=== PATIENT | female | born 1950 | race American Indian/Alaskan Native ===

== ENCOUNTER 2017-01-09 19:38 | Inpatient (IN) | payer MEDICARE, OTHER ==
[2017-01-09 19:50] VITALS: BMI 27.6
[2017-01-09] MEDS ORDERED: Sodium Chloride 0.9% 1,000 ML IV STA (19:58)
--- NOTE | 2017-01-09 20:06 | ED PDOC ---
Arrival/HPI - General Chief Complaint: Abdominal Pain Time Seen by Provider: 01/09/17 19:46 Historian: Patient - History of Present Illness Narrative History of Present Illness (Text): 01/09/17 20:03 A 66 year old female, whose past medical history includes hypertension, colon cancer, and metastasis to the liver, presents to the emergency department for abdominal pain, which began 7 days ago. The patient reports the pain as diffuse cramping pain along with nausea and vomiting. She states she has had decreased bowel movements and is unable to pass gas. The patient notes her last chemo was 3 weeks ago. The patient denies any fever, chest pain, hematuria, or any other complaints at this time. Time/Duration: 1 week Symptom Onset: Sudden Symptom Course: Unchanged Activities at Onset: Light Context: Home Past Medical History - Provider Review Nursing Documentation Reviewed: Yes - Infectious Disease Hx of Infectious Diseases: None - Reproductive Menopause: Yes - Cardiac Hx Hypertension: Yes - Neurological Hx Paralysis: No - Hematological/Oncological Hx Blood Transfusions: No Hx Blood Transfusion Reaction: No - Musculoskeletal/Rheumatological Hx Musculoskeletal Disorders: Yes - Gastrointestinal Other/Comment: colon cancer - Genitourinary/Gynecological Other/Comment: colon cancer on chemo - Psychiatric Hx Substance Use: No - Anesthesia Hx Anesthesia Reactions: No Hx Malignant Hyperthermia: No - Suicidal Assessment Feels Threatened In Home Enviroment: No Family/Social History - Physician Review Nursing Documentation Reviewed: Yes Family/Social History: No Known Family HX Smoking Status: Former Smoker Hx Alcohol Use: Yes (SOCIAL USE ONLY-WINE) Frequency of alcohol use: Socially Hx Substance Use: No Allergies/Home Meds Allergies/Adverse Reactions: Allergies No Known Allergies Allergy (Verified 02/15/13 07:19) Home Medications: Home Meds Medication Instructions Recorded Confirmed Capecitabine 1,000 mg PO BID 01/09/17 01/09/17 Oxycodone HCl/Acetaminophen 1 tab PO Q4 PRN 01/09/17 01/09/17 [Oxycodone-Acetaminophen 5-325] Tramadol HCl [Ultram] 50 mg PO Q8 PRN 01/09/17 01/09/17 amLODIPine [Norvasc] 10 mg PO DAILY 01/09/17 01/09/17 Review of Systems - Physician Review All systems were reviewed & negative as marked: Yes - Review of Systems Constitutional: absent: Fevers Cardiovascular: absent: Chest Pain Gastrointestinal: Abdominal Pain, Stool Changes (decreased bowel movements ), Nausea, Vomiting, Other (unable to pass gas ) Genitourinary Female: absent: Hematuria Physical Exam Vital Signs Reviewed: Yes Vital Signs Temp Pulse Resp BP Pulse Ox 01/09/17 23:23 97.7 F 91 H 16 143/86 96 01/09/17 19:39 98.4 F 96 H 16 142/86 97 Temperature: Afebrile Blood Pressure: Normal Pulse: Tachycardic Respiratory Rate: Normal Appearance: Positive for: Well-Appearing, Non-Toxic, Comfortable Pain Distress: None Mental Status: Positive for: Alert and Oriented X 3 - Systems Exam Head: Present: Atraumatic, Normocephalic Pupils: Present: PERRL Extroacular Muscles: Present: EOMI Conjunctiva: Present: Normal Mouth: Present: Moist Mucous Membranes Neck: Present: Normal Range of Motion Respiratory/Chest: Present: Clear to Auscultation, Good Air Exchange. No: Respiratory Distress, Accessory Muscle Use Cardiovascular: Present: Regular Rate and Rhythm, Normal S1, S2. No: Murmurs Abdomen: Present: Tenderness (mild focal abdominal tenderness ), Normal Bowel Sounds. No: Distention, Peritoneal Signs Back: Present: Normal Inspection Upper Extremity: Present: Normal Inspection. No: Cyanosis, Edema Lower Extremity: Present: Normal Inspection. No: Edema Neurological: Present: GCS=15, CN II-XII Intact, Speech Normal Skin: Present: Warm, Dry, Normal Color. No: Rashes Psychiatric: Present: Alert, Oriented x 3, Normal Insight, Normal Concentration Medical Decision Making ED Course and Treatment: 01/09/17 20:07 Impression: A 66 year old female with abdominal pain. Plan: -- ABD & PELVIS CT -- Labs -- Zofran, IV Fluids -- Urinalysis -- Reassess and disposition Progress Notes: 01/09/17 22:53 Reviewed radiology, CT Abdomen and Pelvis Impression: Dictated and Authenticated by: Marah Marion MD High grade large bowel obstruction at the level of the anastomosis within the deep pelvis, as detailed above. Case discussed with surgical assistant computer consultant, who is aware and agrees to evaluate pt. 01/09/17 22:[address] Breen, covering for Dr. Smith, who is aware and agrees with plan. Pt will be admitted to [facility] for bowel obstruction under Dr. Smith's service. Requests Dr. Walker on consult. - Lab Interpretations Lab Results: 01/09/17 20:15 01/09/17 20:15 Lab Results 01/09/17 22:00: Urine Color Yellow, Urine Appearance Clear, Urine pH 6.5, Ur Specific Yeoman 1.010, Urine Protein Trace H, Urine Glucose (UA) Negative, Urine Ketones 15 H, Urine Blood Trace-lysed H, Urine Nitrate Negative, Urine Bilirubin Negative, Urine Urobilinogen 0.2, Ur Leukocyte Esterase Negative, Urine RBC 1 - 3, Urine WBC 0 - 2, Ur Epithelial Cells 1 - 3, Urine Bacteria Few , Urine Other Uyeast 01/09/17 20:15: Sodium 138, Potassium 3.6, Chloride 101, Carbon Dioxide 25, Anion Gap 16, BUN 16, Creatinine 0.6, Est GFR ( Amer) > 60, Est GFR (Non- Af Amer) > 60, Random Glucose 102, Calcium 9.8, Total Bilirubin 1.3, AST 182 H, ALT 218 H, Alkaline Phosphatase 903 H, Total Protein 7.9, Albumin 4.4, Globulin 3.5, Albumin/Globulin Ratio 1.3, Lipase 26 01/09/17 20:15: PT 11.3, INR 1.05, APTT 35.2 H 01/09/17 20:15: WBC 6.7 D, RBC 4.00, Hgb 13.0, Hct 38.4, MCV 96.0, MCH 32.5, MCHC 33.9, RDW 14.9 H, Plt Count 229, MPV 10.2, Gran % 78.3 H, Lymph % (Auto) 12.0 L, [place] % (Auto) 8.8 H, Eos % (Auto) 0.6 L, Baso % (Auto) 0.3, Gran # 5.24 , Lymph # 0.8 L, [place] # 0.6, Eos # 0.0, Baso # 0.02 I have reviewed the lab results: Yes - RAD Interpretation Radiology Orders: 01/09/17 19:59 ABD & PELVIS IV CONTRAST ONLY [CT] Stat Angle Shear Set Up Operator: Radiologist - Medication Orders Current Medication Orders: Acetaminophen (Tylenol 325mg Tab) 650 mg PO Q4H PRN PRN Reason: Pain, Mild (1-3) Amlodipine Besylate (Norvasc) 10 mg PO DAILY [facility] Docusate Sodium (Colace) 100 mg PO BID [facility] Last Admin: 01/10/17 10:35 Dose: 100 mg Sodium Chloride (Sodium Chloride 0.45%) 1,000 mls @ 80 mls/hr IV .[id number] [facility]AN-CLAUDE Ketorolac Tromethamine (Toradol) 30 mg IVP Q6 PRN PRN Reason: Pain, moderate (4-7) Last Admin: 01/10/17 10:35 Dose: 30 mg Ondansetron HCl (Zofran Inj) 4 mg IVP Q4H PRN PRN Reason: Nausea/Vomiting Discontinued Medications Sodium Chloride (Sodium Chloride 0.9%) 1,000 mls @ 1,000 mls/hr IV .Q1H STA Stop: 01/09/17 20:57 Last Admin: 01/09/17 20:17 Dose: 1,000 mls/hr Lactated Ringer's (Lactated Ringer's) 1,000 mls @ 100 mls/hr IV .Q10H [facility] Last Admin: 01/10/17 07:12 Dose: 100 mls/hr Iohexol (Omnipaque 350 100 Ml) Confirm Administered Dose 350 mg .ROUTE .STK-MED ONE Stop: 01/09/17 21:17 Ketorolac Tromethamine (Toradol) 30 mg IVP STAT STA Stop: 01/09/17 20:44 Last Admin: 01/09/17 20:50 Dose: 30 mg Re-Assess: THEO Pain Assessment Document 01/09/17 21:50 SRE (Rec: 01/09/17 22:19 SRE [id number]) Pain Reassessment Is this a pain reassessment? Yes Sleep Is patient sleeping during reassessment? No Presence of Pain Presence of Pain Yes Pain Scale Used Pain Scale Used Numeric Location Pain Location Body Site Abdomen Description Description Intermittent Ondansetron HCl (Zofran Inj) 4 mg IVP STAT STA Stop: 01/09/17 19:59 Last Admin: 01/09/17 20:18 Dose: 4 mg - Scribe Statement The provider has reviewed the documentation as recorded by the Myranda Zaidi Provider Scribe Attestation: All medical record entries made by the Johnibonofre were at my direction and personally dictated by me. I have reviewed the chart and agree that the record accurately reflects my personal performance of the history, physical exam, medical decision making, and the department course for this patient. I have also personally directed, reviewed, and agree with the discharge instructions and disposition. Disposition/Present on Arrival - Present on Arrival Any Indicators Present on Arrival: No History of DVT/PE: No History of Uncontrolled Diabetes: No Urinary Catheter: No History of Decub. Ulcer: No History Surgical Site Infection Following: None - Disposition Have Diagnosis and Disposition been Completed?: Yes Diagnosis: Bowel obstruction Disposition: HOSPITALIZED Disposition Time: 10:00 Condition: STABLE
[2017-01-09 20:32] LABS: BASO # 0.02 K/mm3 (0.0-2.0); BASO % 0.3 % (0.0-3.0); EOS % 0.6 % (1.5-5.0); GRAN # 5.24 (1.4-6.5); GRAN % 78.3 % (50.0-68.0); HEMATOCRIT 38.4 % (36.0-48.0); LYMPH # 0.8 (1.2-3.4); MEAN CORPUSCULAR HEMOGLOBIN 32.5 pg (25.0-35.0); MEAN CORPUSCULAR HGB CONC 33.9 g/dl (31.0-37.0); MEAN PLATELET VOLUME 10.2 fl (7.0-11.0); MONO # 0.6 (0.1-0.6); MONO % 8.8 % (1.0-6.0); RED CELL DISTRIBUTION WIDTH 14.9 % (11.5-14.5); WHITE BLOOD COUNT 6.7 10^3/ul (4.5-11.0)
[2017-01-09 20:38] LABS: ALB/GLOB RATIO 1.3 (1.1-1.8); ALKALINE PHOSPHATASE 903 U/L (38-133); ALT/SGPT 218 U/L (7-56); AST/SGOT 182 U/L (15-39); BILIRUBIN,TOTAL 1.3 mg/dL (0.2-1.3); BLOOD UREA NITROGEN 16 mg/dL (7-21); CALCIUM 9.8 mg/dL (8.4-10.5); CARBON DIOXIDE 25 mmol/L (21-33); CHLORIDE 101 mmol/L (98-107); GFR AFRICAN-AMERICAN > 60; GLUCOSE,RANDOM 102 mg/dL (70-110); LIPASE 26 U/L (23-300); POTASSIUM 3.6 mmol/L (3.6-5.0); SODIUM 138 mmol/L (132-148); TOTAL PROTEIN 7.9 g/dL (5.8-8.3)
[2017-01-09 20:45] LABS: INR 1.05 (0.93-1.08); PARTIAL THROMBOPLASTIN TIME 35.2 Seconds (23.7-30.8)
[2017-01-09] MEDS ORDERED: Iohexol 350 MG/100 ML VIAL ONE (21:16)
[2017-01-09 22:18] LABS: PH,URINE 6.5 (4.7-8.0); URINE APPEARANCE CLEAR (CLEAR); URINE BILIRUBIN NEGATIVE (NEGATIVE); URINE BLOOD TRACE-LYSED (NEGATIVE); URINE COLOR YELLOW (YELLOW); URINE GLUCOSE (UA) NEGATIVE (NEGATIVE); URINE KETONE 15 mg/dL (NEGATIVE); URINE LEUKOCYTE ESTERASE NEGATIVE Leu/uL (NEGATIVE); URINE PROTEIN TRACE mg/dL (<30 mg/dL); URINE UROBILINOGEN 0.2 E.U./dL (<1 E.U./dL)
[2017-01-09 22:23] LABS: URINE BACTERIA FEW (NEG); URINE WBC 0 - 2 /hpf (0-6)
--- NOTE | 2017-01-09 22:51 | CT ---
EXAM: CT Abdomen and Pelvis With Intravenous Contrast CLINICAL HISTORY: 66 years old, female; Pain; Abdominal pain; Prior surgery; Patient HX: Diffuse abd pain h/o of colon ca TECHNIQUE: Axial computed tomography images of the abdomen and pelvis with intravenous contrast. All CT scans at this facility use one or more dose reduction techniques, viz.: automated exposure control; ma/kV adjustment per patient size (including targeted exams where dose is matched to indication; i.e. head); or iterative reconstruction technique. Coronal and sagittal reformatted images were created and reviewed. CONTRAST: 96 mL of OMNIPAQUE 350 administered intravenously. COMPARISON: CT - CHEST,ABD,PEL W/IV PO CONTRAST 12/26/2015 8:39:26 AM FINDINGS: Lower thorax: The bilateral lung bases are clear. ABDOMEN: Liver: Globular focus of decreased attenuation within the right lobe of the liver, measuring approximately 6 x 8 cm consistent with findings on the PET CT, performed 11/04/2016, and consistent with metastatic disease. Gallbladder and bile ducts: The gallbladder is surgically absent. No significant intra- or extrahepatic biliary ductal dilation. Pancreas: Enhances homogeneously. No ductal dilation. No discrete mass. Spleen: No acute findings. Adrenals: No acute findings. Kidneys and ureters: No acute findings. No hydronephrosis or renal calculi. No discrete solid mass. Multiple rounded areas of decreased attenuation are identified within the bilateral kidneys, statistically representing cysts. PELVIS: Bladder: No acute findings. Reproductive: Persistent 23 mm focus of fluid attenuation within the right hemipelvis, suggesting a right ovarian cyst. Appendix: The appendix is of normal caliber (series 2, image 125; series 601, image 64) . ABDOMEN and PELVIS: Stomach and bowel: Multiple loops of distended colon extending into the pelvis to the level of the rectal anastomosis (best seen on series 2, images 144 through 151). Surrounding free fluid is present within the deep pelvis. No Stomach and small bowel are decompressed. Peritoneum: As above. Lymph nodes: No pathologically enlarged lymph nodes. Vasculature: Vascular coils at the level of the gastroduodenal artery origin, suggesting prior radioembolization. Calcified atherosclerotic disease. Bones: No acute fracture. IMPRESSION: High grade large bowel obstruction at the level of the anastomosis within the deep pelvis, as detailed above.
--- NOTE | 2017-01-09 23:38 | CP.PCM.CON ---
History of Present Illness - History of Present Illness History of Present Illness: General Surgery Dr. Walker 66 y/o F w/ PMHx of HTN, colon CA presents to the ED c/o N/V. Pt reports on and off constipation for which she takes MoM and Lactulose as needed. Pt reports decreased appetite 2/2 constipation. Pt admits to worsening lower abd pain exacerbated by PO intake. Pt prescribed Tramadol by PMD, which pt took today. Pt report NBNB vomiting shortly after taking medication. +Flatus/BM today. Pt denies CP, SOB, dizziness, lightheadedness, dysuria, frequency. PMHx: see above Meds: reviewed in chart NKDA PSHx: colon resection SHx: denies tobacco, EtOH, drugs FHx: noncontributory Review of Systems - Review of Systems All systems: reviewed and no additional remarkable complaints except (see HPI) Past Patient History - Infectious Disease Hx of Infectious Diseases: None - Past Social History Smoking Status: Former Smoker - CARDIAC Hx Hypertension: Yes - NEUROLOGICAL Hx Paralysis: No - HEMATOLOGICAL/ONCOLOGICAL Hx Blood Transfusions: No Hx Blood Transfusion Reaction: No - MUSCULOSKELETAL/RHEUMATOLOGICAL Hx Musculoskeletal Disorders: Yes - GASTROINTESTINAL Other/Comment: colon cancer - GENITOURINARY/GYNECOLOGICAL Other/Comment: colon cancer on chemo - PSYCHIATRIC Hx Substance Use: No - SURGICAL HISTORY Hx Surgeries: Yes (COLON RESECTION 2012) - ANESTHESIA Hx Anesthesia Reactions: No Hx Malignant Hyperthermia: No Meds Allergies/Adverse Reactions: Allergies Allergy/AdvReac Type Severity Reaction Status Date / Time No Known Allergies Allergy Verified 02/15/13 07:19 Physical Exam - Constitutional Appears: Non-toxic, No Acute Distress - Head Exam Head Exam: NORMAL INSPECTION - Eye Exam Eye Exam: Normal appearance - ENT Exam ENT Exam: Mucous Membranes Moist - Respiratory Exam Respiratory Exam: NORMAL BREATHING PATTERN. absent: Accessory Muscle Use, Respiratory Distress - Cardiovascular Exam Cardiovascular Exam: absent: Bradycardia, Tachycardia - GI/Abdominal Exam GI & Abdominal Exam: Distended, Soft, Tenderness (minimal TTP). absent: Guarding, Hernia, Rebound - Extremities Exam Extremities exam: Positive for: normal inspection - Neurological Exam Neurological exam: Alert, Oriented x3 - Psychiatric Exam Psychiatric exam: Normal Affect, Normal Mood - Skin Skin Exam: Dry, Intact, Normal Color, Warm Results - Vital Signs Recent Vital Signs: Last Vital Signs Temp 97.7 F 01/09/17 23:23 Pulse 91 H 01/09/17 23:23 Resp 16 01/09/17 23:23 BP 143/86 01/09/17 23:23 Pulse Ox 96 01/09/17 23:23 - Labs Result Diagrams: 01/09/17 20:15 01/09/17 20:15 - Imaging and Cardiology CT scan - abdomen Status: Image reviewed by me, Report reviewed by me Assessment & Plan - Assessment and Plan (Free Text) Assessment: 66 y/o F w/ High grade large bowel obstruction on CT - NPO vs CLD - pain management - stool softeners - anti-emetics - NGT needed if vomiting - GI consult for colonoscopy Will discuss w/ Dr. Aaron Koenig DO PGY2
[2017-01-10] MEDS ORDERED: Lactated Ringer's 1,000 ML IV SCH (06:35)
[2017-01-10] MEDS ORDERED: Morphine 4 mg/ml ISec IVP PRN (06:35)
--- NOTE | 2017-01-10 09:49 | CP.PCM.PN ---
Subjective - Date & Time of Evaluation Date of Evaluation: 01/10/17 Time of Evaluation: 09:45 - Subjective Subjective: Surgery: Dr. Walker Patient reports some cramp like abdominal pain that comes and goes. She denies n /v. She denies f/c. She denies flatus or bowel movement. After further discussion patient reports a gradual decrease in caliper of bowel movements over the past couple of months.She states at times almost a thin as a pencil. She states she normal take milk of magnesia at home to help with bowel movements but have been unsuccessful recently. She states that she is unsure who her primary surgeon was who performed the initial colon resection. She does state the surgery was in 2012 and she did received chemotherapy after. She states about 1 year ago she was told the cancer was back in her liver which she was restarted on chemotherapy. Her constipation issues became severe in about October of this year. Objective - Vital Signs/Intake and Output Vital Signs (last 24 hours): Temp Pulse Resp BP Pulse Ox 97.7 F 85 17 165/95 H 99 01/10/17 08:21 01/10/17 08:21 01/10/17 08:21 01/10/17 08:21 01/10/17 08:21 - Medications Medications: Current Medications Acetaminophen (Tylenol 325mg Tab) 650 mg PO Q4H PRN PRN Reason: Pain, Mild (1-3) Docusate Sodium (Colace) 100 mg PO BID [facility] Lactated Ringer's (Lactated Ringer's) 1,000 mls @ 100 mls/hr IV .Q10H [facility] Last Admin: 01/10/17 07:12 Dose: 100 mls/hr Ketorolac Tromethamine (Toradol) 30 mg IVP Q6 PRN PRN Reason: Pain, moderate (4-7) Ondansetron HCl (Zofran Inj) 4 mg IVP Q4H PRN PRN Reason: Nausea/Vomiting - Labs Labs: PT 11.3 Seconds (9.9-11.8) 01/09/17 20:15 INR 1.05 (0.93-1.08) 01/09/17 20:15 APTT 35.2 Seconds (23.7-30.8) H 01/09/17 20:15 - Constitutional Appears: Non-toxic, No Acute Distress - Head Exam Head Exam: ATRAUMATIC, NORMOCEPHALIC - Eye Exam Eye Exam: EOMI, Normal appearance - ENT Exam ENT Exam: Mucous Membranes Moist - Respiratory Exam Respiratory Exam: NORMAL BREATHING PATTERN. absent: Respiratory Distress - Cardiovascular Exam Cardiovascular Exam: REGULAR RHYTHM. absent: Tachycardia - GI/Abdominal Exam GI & Abdominal Exam: Distended, Firm (mainly on left and mid lower abdomen.), Soft, Tenderness (suprapubic ). absent: Guarding, Rebound Assessment and Plan - Assessment and Plan (Free Text) Assessment: 66 y/o female w/ obstipation, could be 2/2 anastomotic stricture Plan: -recommend GI consult -would like evaluation of anastomosis with c-scope prior to further surgical recs -otherwise cont. current care -d/w Dr. Aaron Escobar PGY3
[2017-01-10] MEDS: Sodium Chloride 0.45% 1,000 ML IV SCH (14:40)
--- NOTE | 2017-01-10 17:23 | PN ---
DATE: Jyothi David is seen with a resident. I examined the patient myself, reviewed the films and agree with the resident's history and physical. Initially, the patient had a laparoscopic colectomy done several years ago and now seems to have a stricture, it is low down in the pelvis with dilated loops of bowel behind it going up to 8 cm, measured myself 7-8 cm anyway. She is not passing gas at the movement, has a little bit of pain, not a lot and fells blotted. CAT scan shows the dilated loops above. The plan will be endoscopic dilation and stent, if possible. Other than that, we will probably need a decompressing colostomy. Of note, her elevated liver function tests and a CAT scan report shows massive tumor in the liver. Virgilio Walker MD
[2017-01-11] MEDS: Sodium Chloride 0.45% 1,000 ML IV SCH (06:22)
--- NOTE | 2017-01-11 06:25 | HP ---
HISTORY OF PRESENT ILLNESS: I saw Jyothi in her room today. She has an abdominal pain. She has been dealing with this for 7 days, I understand. She had diffuse cramping, nausea and vomiting. Decreased bowel movement, cannot pass gas. Last chemo was 3 weeks ago. She has a history of colon cancer with liver metastases, hypertension in the family, former smoker, occasional wine. No drugs. ALLERGIES: NO KNOWN DRUG ALLERGIES. She has pain medications at home. [facility] for blood pressure. REVIEW OF SYSTEMS: No acute vision changes. No acute hearing changes. No sore throat. No chest pain or palpitations. No shortness of breath or coughing, no mucus. She is having severe abdominal pain diffusely, cramping. She has been dealing this for 7 days, it got very bad, had to come to the emergency room. She has got to the point of no bowel movement and no gas. She started to have nausea and vomiting. No problems urinating. She is able to move all four extremities. No anxiety or depression or sweating. PHYSICAL EXAMINATION: VITAL SIGNS She has 98.4 temperature, 96 pulse, 16 respiratory rate, 142/86 blood pressure, 97% O2 saturation on room air. HEENT: Head is atraumatic, normocephalic. She is mildly toxic, not feeling that well at this time, not that comfortable, lots of abdominal pain. She is awake, alert and oriented x3 and understands what is going on. She was told that the bowels have stopped working, concerned about the colon cancer area. Extraocular muscles are intact. Pupil reactive to light. Throat is moist. NECK: Supple. LUNGS: Decreased breath sounds. Clear to auscultation. HEART: Regular rate. Normal S1 and S2. ABDOMEN: Tenderness diffusely all over the bowels. Decreased bowels if any. No guarding or rebound at this time, that is after IV pain meds. EXTREMITIES: No edema. NEUROLOGIC: GCS is 15. Cranial nerves II through XII grossly intact. Speech is normal. SKIN: Warm and dry intact. No rashes or ulcers. Alert and oriented x3. NODES: Midline thyroid. No palpable or appreciative adenopathy. LABORATORY DATA: Urine was due. She has a 138 sodium, potassium of 3.6, BUN 16, creatinine 0.6. GFR is greater than 60. Sugar is 102. Calcium is 9.8. Total bilirubin is 1.3. Liver enzymes are elevated, AST is 182, ALT is 218, and alkaline phosphatase is 903 which goes along with colon cancer and liver metastasis. Total protein is 7.9, albumin is 4.4, lipase is 26. INR is 1.05. She has a 6.7 white count, 13 hemoglobin, 38.4 hematocrit, 229 platelets. She had a CAT scan of the abdomen and pelvis which shows high grade large bowel obstruction at the level of the anastomosis within the deep pelvis. This is concerning. PLAN: We are going to make her n.p.o., IV fluids. I have changed her Lactated Ringers to one-half normal. All the electrolytes are fine. She will be on some Zofran. She will have pain medications as needed. Currently, she is on Toradol. We need to order morphine, she will be n.p.o. She has a consult with surgery, will consult GI. She might need a colonoscopy to look at the anastomosis. In the meantime, she has a large small bowel obstruction, she has a history of colon cancer with surgery and liver metastasis and hypertension which is now 155/95 to 160/99. I will put her back on her amlodipine. Noah Smith DO
[2017-01-11 07:11] LABS: HEMATOCRIT 37.5 % (36.0-48.0); MEAN CELL VOLUME 95.4 fl (80.0-105.0); MEAN CORPUSCULAR HEMOGLOBIN 32.6 pg (25.0-35.0); MEAN CORPUSCULAR HGB CONC 34.1 g/dl (31.0-37.0); RED CELL DISTRIBUTION WIDTH 14.7 % (11.5-14.5); WHITE BLOOD COUNT 5.6 10^3/ul (4.5-11.0)
--- NOTE | 2017-01-11 07:16 | CP.PCM.PN ---
Subjective - Date & Time of Evaluation Date of Evaluation: 01/11/17 Time of Evaluation: 07:13 - Subjective Subjective: General Surgery: Dr Walker Pt S&E. NAEO. Is OOB to chair. Reports continued discomfort. Passed flatus one single time but no bowel movement. Denies N/V. Objective - Vital Signs/Intake and Output Vital Signs (last 24 hours): Temp Pulse Resp BP Pulse Ox 98.5 F 77 18 165/95 H 100 01/10/17 14:00 01/10/17 14:00 01/10/17 14:00 01/10/17 14:31 01/10/17 14:00 Intake and Output: 01/11/17 01/11/17 06:59 18:59 Intake Total 1780 Balance 1780 - Medications Medications: Current Medications Acetaminophen (Tylenol 325mg Tab) 650 mg PO Q4H PRN PRN Reason: Pain, Mild (1-3) Amlodipine Besylate (Norvasc) 10 mg PO DAILY [facility] Last Admin: 01/10/17 14:31 Dose: 10 mg Calcium Carbonate (Caltrate) 600 mg PO DAILY PRN PRN Reason: GI distress Last Admin: 01/10/17 17:34 Dose: 600 mg Docusate Sodium (Colace) 100 mg PO BID [facility] Last Admin: 01/10/17 17:34 Dose: 100 mg Sodium Chloride (Sodium Chloride 0.45%) 1,000 mls @ 80 mls/hr IV .[id number] [facility] Last Admin: 01/11/17 06:22 Dose: 80 mls/hr Ketorolac Tromethamine (Toradol) 30 mg IVP Q6 PRN PRN Reason: Pain, moderate (4-7) Last Admin: 01/10/17 16:42 Dose: 30 mg Ondansetron HCl (Zofran Inj) 4 mg IVP Q4H PRN PRN Reason: Nausea/Vomiting Last Admin: 01/11/17 06:42 Dose: 4 mg - Labs Labs: PT 11.3 Seconds (9.9-11.8) 01/09/17 20:15 INR 1.05 (0.93-1.08) 01/09/17 20:15 APTT 35.2 Seconds (23.7-30.8) H 01/09/17 20:15 - Constitutional Appears: Non-toxic, No Acute Distress - Respiratory Exam Respiratory Exam: absent: Accessory Muscle Use, Respiratory Distress - Cardiovascular Exam Cardiovascular Exam: REGULAR RHYTHM - GI/Abdominal Exam GI & Abdominal Exam: Distended, Soft, Tenderness (worse in LLQ + RLQ) - Neurological Exam Neurological Exam: Alert, Awake, Oriented x3 - Psychiatric Exam Psychiatric exam: Normal Affect, Normal Mood Assessment and Plan - Assessment and Plan (Free Text) Assessment: 66F with large bowel obstruction, likely 2/2 anastomotic stricture Plan: pending GI consult for possible colonoscopy and stent placement will continue to follow no immediate surgical intervention planned will d/w Dr Aaron Aguayo, PGY3
--- NOTE | 2017-01-11 07:38 | CP.PCM.CON ---
History of Present Illness - History of Present Illness History of Present Illness: GI consult note: 66 F with pmh of HTN and Colon Ca (s/p colon resection and on chemo) presents with abdominal pain and constipation. Pt States that her constipation first started 1 month ago but it has gotten progressively worse. She has gone to her PMD and has take MoM, Citrate mag, fleet suppository but it has not helped. Her last BM was 2 days ago. Denies passing any gas. She started to feel severe 10/ 10 abdominal pain started 4-5 days ago. Her PMD gave her Percocet and Tramadol for the pain which has alleviated the pain. Pt reports good appetite. Denies any nausea or vomiting. No other complaints. 12 Point ROS performed and negative except where stated. PMHx: HTN and Colon Ca (s/p colon resection and on chemo) PSH: colon resection 5 years ago Meds: refer to [facility] ALL: NKA SHx: Former smoker of 10 years, former socaila drinker EtOH, denies any drug use FHx: Father with heart dx, Mother with HTN Endo hx: Colonoscopy last year with malignant? polyp removed Review of Systems - Review of Systems All systems: reviewed and no additional remarkable complaints except Past Patient History - Infectious Disease Hx of Infectious Diseases: None - Past Social History Smoking Status: Former Smoker - CARDIAC Hx Hypertension: Yes - NEUROLOGICAL Hx Paralysis: No - HEMATOLOGICAL/ONCOLOGICAL Hx Blood Transfusions: No Hx Blood Transfusion Reaction: No - MUSCULOSKELETAL/RHEUMATOLOGICAL Hx Musculoskeletal Disorders: Yes - GASTROINTESTINAL Other/Comment: colon cancer - GENITOURINARY/GYNECOLOGICAL Other/Comment: colon cancer on chemo - PSYCHIATRIC Hx Substance Use: No - SURGICAL HISTORY Hx Surgeries: Yes (COLON RESECTION 2012) - ANESTHESIA Hx Anesthesia Reactions: No Hx Malignant Hyperthermia: No Meds Allergies/Adverse Reactions: Allergies Allergy/AdvReac Type Severity Reaction Status Date / Time No Known Allergies Allergy Verified 02/15/13 07:19 - Medications Medications: Current Medications Acetaminophen (Tylenol 325mg Tab) 650 mg PO Q4H PRN PRN Reason: Pain, Mild (1-3) Amlodipine Besylate (Norvasc) 10 mg PO DAILY [facility] Last Admin: 01/10/17 14:31 Dose: 10 mg Calcium Carbonate (Caltrate) 600 mg PO DAILY PRN PRN Reason: GI distress Last Admin: 01/10/17 17:34 Dose: 600 mg Docusate Sodium (Colace) 100 mg PO BID [facility] Last Admin: 01/10/17 17:34 Dose: 100 mg Sodium Chloride (Sodium Chloride 0.45%) 1,000 mls @ 80 mls/hr IV .[id number] [facility] Last Admin: 01/11/17 06:22 Dose: 80 mls/hr Ketorolac Tromethamine (Toradol) 30 mg IVP Q6 PRN PRN Reason: Pain, moderate (4-7) Last Admin: 01/10/17 16:42 Dose: 30 mg Ondansetron HCl (Zofran Inj) 4 mg IVP Q4H PRN PRN Reason: Nausea/Vomiting Last Admin: 01/11/17 06:42 Dose: 4 mg Physical Exam - Constitutional Appears: No Acute Distress - Head Exam Head Exam: NORMAL INSPECTION - Eye Exam Eye Exam: EOMI, PERRL - ENT Exam ENT Exam: Mucous Membranes Moist - Respiratory Exam Respiratory Exam: Clear to Auscultation Bilateral. absent: Rales, Rhonchi, Wheezes - Cardiovascular Exam Cardiovascular Exam: REGULAR RHYTHM, RRR, +S1, +S2 - GI/Abdominal Exam GI & Abdominal Exam: Normal Bowel Sounds, Soft, Tenderness. absent: Distended Additional comments: Mild epigastric tenderness - Extremities Exam Extremities exam: Negative for: calf tenderness, pedal edema - Neurological Exam Neurological exam: Alert, Oriented x3, Reflexes Normal - Psychiatric Exam Psychiatric exam: Normal Affect, Normal Mood - Skin Skin Exam: Dry, Intact, Warm Results - Vital Signs Recent Vital Signs: Last Vital Signs Temp 98.5 F 01/10/17 14:00 Pulse 77 01/10/17 14:00 Resp 18 01/10/17 14:00 BP 165/95 H 01/10/17 14:31 Pulse Ox 100 01/10/17 14:00 - Labs Result Diagrams: 01/11/17 06:45 01/09/17 20:15 Labs: Laboratory Results - last 24 hr 01/11/17 06:45 WBC 5.6 RBC 3.93 Hgb 12.8 Hct 37.5 MCV 95.4 MCH 32.6 MCHC 34.1 RDW 14.7 H Plt Count 233 MPV 10.0 Assessment & Plan - Assessment and Plan (Free Text) Assessment: 66 F with pmh of HTN and Colon Ca (s/p colon resection and on chemo) presents with abdominal pain and constipation found to have large bowel obstruction at the site of anastamosis. Plan: - Medical management as per primary team - NPO Devon NPO - F/u Surgery recs - Pain control wiht Toradol - Antiemetics with Zofran - Stool softeners with colace
[2017-01-11 08:00] LABS: ALB/GLOB RATIO 1.2 (1.1-1.8); ALKALINE PHOSPHATASE 865 U/L (38-133); ALT/SGPT 205 U/L (7-56); AST/SGOT 168 U/L (15-39); BILIRUBIN,TOTAL 1.5 mg/dL (0.2-1.3); BLOOD UREA NITROGEN 20 mg/dL (7-21); CALCIUM 9.5 mg/dL (8.4-10.5); CARBON DIOXIDE 23 mmol/L (21-33); CHLORIDE 102 mmol/L (98-107); GFR AFRICAN-AMERICAN > 60; GLUCOSE,RANDOM 88 mg/dL (70-110); POTASSIUM 3.4 mmol/L (3.6-5.0); SODIUM 138 mmol/L (132-148); TOTAL PROTEIN 7.5 g/dL (5.8-8.3)
--- NOTE | 2017-01-11 10:10 | PN ---
DATE: SUBJECTIVE: I saw Jyothi sitting out of bed to chair. She is still in abdominal pain, still not feeling well, very uncomfortable. PHYSICAL EXAMINATION: VITAL SIGNS: Are 98.1 temperature, 88 pulse, 160/82 blood pressure, 18 respiratory rate, 97% O2 saturation on room air. HEENT: Head is atraumatic, normocephalic. HEART: Regular rate. LUNGS: Decreased breath sounds, but clear. ABDOMEN: Soft. Normal bowel sounds. Still positive pain. No guarding, but discomfort. EXTREMITIES: No edema. MEDICATIONS: She is currently on Caltrate, Colace, Norvasc, IV fluids, Toradol, Tylenol and Zofran. LABORATORY DATA: She has a white count of 5.6, hemoglobin 12.8, hematocrit 37.5, platelets are 233. She has a 138 sodium, potassium 3.4, I will replace her potassium, BUN 20, creatinine 0.6, GFR is greater than 60, sugar is 88, calcium is 9.5. Total bilirubin 1.5, up. AST is 168, ALT is 205, alkaline phosphatase is 865, little better. Total protein is 7.5, albumin is 4.1. ASSESSMENT AND PLAN: She has consult with GI, Surgery. She is n.p.o. She is on IV fluids, Caltrate, Colace, Norvasc, Toradol, Tylenol and Zofran. I will give her K-Shree. See with GI and Surgery as planned. We have got a CAT scan that shows high-grade large bowel obstruction at the level of the anastomosis in her deep pelvis. Noah Smith DO
[2017-01-11] MEDS ORDERED: Morphine 2 mg/ml ISec IVP STA (21:09)
--- NOTE | 2017-01-11 21:12 | CP.PCM.PN ---
Subjective - Date & Time of Evaluation Date of Evaluation: 01/11/17 Time of Evaluation: 21:10 - Subjective Subjective: Patient was seen at bedside. She complained of lower abdominal pain. Pain is mild, not radiating . Also her blood pressure was 170/104 and repeat one was 176/94. Denies headache, dizziness, chest pain, sob. ROS: Negative except as mentioned above. Medical record was reviewed. This 66 year old woman was admitted with diffuse cramping abdominal pain, nausea, vomiting. Has PMH of HTN, colon cancer , mets to liver, former smoker, occasional alcohol user. Objective - Vital Signs/Intake and Output Vital Signs (last 24 hours): Temp Pulse Resp BP Pulse Ox 98.7 F 98 H 20 170/104 H 98 01/11/17 21:04 01/11/17 21:04 01/11/17 21:04 01/11/17 21:04 01/11/17 15:47 - Medications Medications: Current Medications Acetaminophen (Tylenol 325mg Tab) 650 mg PO Q4H PRN PRN Reason: Pain, Mild (1-3) Amlodipine Besylate (Norvasc) 10 mg PO DAILY [facility] Last Admin: 01/11/17 09:46 Dose: 10 mg Calcium Carbonate (Caltrate) 600 mg PO DAILY PRN PRN Reason: GI distress Last Admin: 01/11/17 17:32 Dose: 600 mg Docusate Sodium (Colace) 100 mg PO BID [facility] Last Admin: 01/11/17 18:07 Dose: 100 mg Sodium Chloride (Sodium Chloride 0.45%) 1,000 mls @ 80 mls/hr IV .[id number] [facility] Last Admin: 01/11/17 06:22 Dose: 80 mls/hr Ketorolac Tromethamine (Toradol) 30 mg IVP Q6 PRN PRN Reason: Pain, moderate (4-7) Last Admin: 01/11/17 18:40 Dose: 30 mg Morphine Sulfate (Morphine) 2 mg IVP STAT STA Stop: 01/11/17 21:10 Ondansetron HCl (Zofran Inj) 4 mg IVP Q4H PRN PRN Reason: Nausea/Vomiting Last Admin: 01/11/17 06:42 Dose: 4 mg - Labs Labs: 01/11/17 06:45 01/11/17 06:45 PT 11.3 Seconds (9.9-11.8) 01/09/17 20:15 INR 1.05 (0.93-1.08) 01/09/17 20:15 APTT 35.2 Seconds (23.7-30.8) H 01/09/17 20:15 - Constitutional Appears: Well, No Acute Distress - Head Exam Head Exam: ATRAUMATIC, NORMAL INSPECTION, NORMOCEPHALIC - Eye Exam Eye Exam: Normal appearance - ENT Exam ENT Exam: Normal External Ear Exam - Neck Exam Neck Exam: Normal Inspection - Respiratory Exam Respiratory Exam: NORMAL BREATHING PATTERN - Cardiovascular Exam Cardiovascular Exam: absent: JVD - GI/Abdominal Exam GI & Abdominal Exam: absent: Distended - Rectal Exam Rectal Exam: Deferred - Exam Additional comments: Deferred. - Back Exam Back Exam: NORMAL INSPECTION - Neurological Exam Neurological Exam: Alert, Awake - Psychiatric Exam Psychiatric exam: Normal Affect, Normal Mood - Skin Skin Exam: Normal Color Assessment and Plan - Assessment and Plan (Free Text) Assessment: Elevated blood pressure reading. Lower Abdominal pain. HTN. Colon cancer. Mets to liver. Former smoker. Alcohol user.
--- NOTE | 2017-01-11 21:51 | CON ---
DATE: 01/11/2017 REQUESTING PHYSICIAN: Noah Smith DO REASON FOR CONSULT: I have been asked to see this 66-year-old female diagnosed with colon cancer with liver metastasis back in 2012, being treated with adjuvant chemotherapy with her last dose 3 weeks ago, who comes to the hospital with several weeks of worsening lower abdominal pain and constipation. A PET scan of the abdomen performed approximately one month ago showed activity in the liver as well as the rectosigmoid area. CT scan of the abdomen and pelvis performed in the emergency room showed colonic obstruction at the level of the sigmoid anastomosis. She denies any nausea, vomiting, fevers, chills, hematuria, or pneumaturia. PAST MEDICAL HISTORY: Notable for colon cancer with liver metastasis, status post colon resection at the time of diagnosis in 2012, currently being treated with adjuvant chemotherapy. Patient had a follow-up colonoscopy in 2014 which showed recurrent cancer at the anastamotic site at recto-sigmoid junction. She also has a history of hypertension. PAST SURGICAL HISTORY: Notable for sigmoid colon resection. SOCIAL HISTORY: She consumes alcohol on a social basis. She quit cigarette smoking many years ago. FAMILY HISTORY: Noncontributory. REVIEW OF SYSTEMS: 14-point review of systems is notable for lower abdominal pain and constipation. PHYSICAL EXAMINATION GENERAL: Well-developed female lying in bed in no acute distress. VITAL SIGNS: Reveal temperature of 98.1, blood pressure 160/82, heart rate of 88. HEENT: Revealed sclerae to be white. Conjunctivae are pink. NECK: Supple. CARDIOPULMONARY: Heart exam reveals a regular rate and rhythm. LUNGS: Chest reveal lungs to be clear. ABDOMEN: Abdomen is softly distended. Mild lower abdominal tenderness. No rebound. No guarding. EXTREMITIES: No edema. LABORATORY DATA: Reveal white blood cell count 5.6, hemoglobin 12.8. Laboratory data reveal AST 168, ALT 205, alkaline phosphatase of 865. IMPRESSION: A 66-year-old female diagnosed with colon cancer with liver metastasis in 2012, presents with several weeks of abdominal pain and increasing constipation. CT scan of the abdomen and pelvis reveals a colonic obstruction at the level of the surgical anastomoses secondary to recurrent colon cancer. RECOMMENDATIONS: 1. Surgical evaluation for colostomy. 2. Unfortunately, the physician who performs colonic stenting is not available this week as he is away on vacation. I have discussed this case with Dr. Walker who will perform a diverting transverse colostomy. Again, the colostomy will be a palliative process as the patient has stage IV colon cancer with liver metastasis. Arvind Spears MD MTD[facility]
[2017-01-12 06:07] LABS: HEMATOCRIT 37.5 % (36.0-48.0); MEAN CELL VOLUME 94.5 fl (80.0-105.0); MEAN CORPUSCULAR HEMOGLOBIN 32.2 pg (25.0-35.0); MEAN CORPUSCULAR HGB CONC 34.1 g/dl (31.0-37.0); MEAN PLATELET VOLUME 9.7 fl (7.0-11.0); RED CELL DISTRIBUTION WIDTH 14.4 % (11.5-14.5); WHITE BLOOD COUNT 5.7 10^3/ul (4.5-11.0)
[2017-01-12 06:29] LABS: ALB/GLOB RATIO 1.1 (1.1-1.8); ALKALINE PHOSPHATASE 858 U/L (38-133); ALT/SGPT 182 U/L (7-56); AST/SGOT 145 U/L (15-39); BILIRUBIN,TOTAL 1.8 mg/dL (0.2-1.3); BLOOD UREA NITROGEN 21 mg/dL (7-21); CALCIUM 9.6 mg/dL (8.4-10.5); CARBON DIOXIDE 25 mmol/L (21-33); CHLORIDE 101 mmol/L (95-110); GFR AFRICAN-AMERICAN > 60; GLUCOSE,RANDOM 81 mg/dL (70-110); POTASSIUM 3.5 mmol/L (3.6-5.0); SODIUM 137 mmol/L (132-148); TOTAL PROTEIN 7.4 g/dL (5.8-8.3)
[2017-01-12] MEDS: Sodium Chloride 0.45% 1,000 ML IV SCH (06:48)
--- NOTE | 2017-01-12 08:05 | CP.PCM.PN ---
Subjective - Date & Time of Evaluation Date of Evaluation: 01/12/17 Time of Evaluation: 08:02 - Subjective Subjective: General Surgery Progress Note for Dr. Walker PT S&E at bedside. Patient is agreeable to having the colostomy done. Patient made aware it is scheduled for Saturday 01/13. Patient denies F/C, N/V. Patient admits to some discomfort of her abdomen, but tolerable with current medical management. Objective - Vital Signs/Intake and Output Vital Signs (last 24 hours): Temp Pulse Resp BP Pulse Ox 98.7 F 98 H 20 160/90 H 98 01/11/17 21:04 01/11/17 21:04 01/11/17 21:04 01/12/17 05:38 01/11/17 15:47 Intake and Output: 01/12/17 01/12/17 06:59 18:59 Intake Total 1000 Balance 1000 - Medications Medications: Current Medications Acetaminophen (Tylenol 325mg Tab) 650 mg PO Q4H PRN PRN Reason: Pain, Mild (1-3) Amlodipine Besylate (Norvasc) 10 mg PO DAILY [facility] Last Admin: 01/12/17 05:38 Dose: 10 mg Calcium Carbonate (Caltrate) 600 mg PO DAILY PRN PRN Reason: GI distress Last Admin: 01/11/17 17:32 Dose: 600 mg Docusate Sodium (Colace) 100 mg PO BID [facility] Last Admin: 01/11/17 18:07 Dose: 100 mg Sodium Chloride (Sodium Chloride 0.45%) 1,000 mls @ 80 mls/hr IV .[id number] [facility] Last Admin: 01/12/17 06:48 Dose: 80 mls/hr Ketorolac Tromethamine (Toradol) 30 mg IVP Q6 PRN PRN Reason: Pain, moderate (4-7) Last Admin: 01/12/17 01:05 Dose: 30 mg Ondansetron HCl (Zofran Inj) 4 mg IVP Q4H PRN PRN Reason: Nausea/Vomiting Last Admin: 01/11/17 06:42 Dose: 4 mg - Labs Labs: 01/12/17 05:45 01/12/17 05:45 PT 11.3 Seconds (9.9-11.8) 01/09/17 20:15 INR 1.05 (0.93-1.08) 01/09/17 20:15 APTT 35.2 Seconds (23.7-30.8) H 01/09/17 20:15 - Constitutional Appears: Non-toxic, No Acute Distress - Head Exam Head Exam: NORMAL INSPECTION - Eye Exam Eye Exam: EOMI, Normal appearance - ENT Exam ENT Exam: Mucous Membranes Moist - Neck Exam Neck Exam: Full ROM, Normal Inspection - Respiratory Exam Respiratory Exam: Clear to Ausculation Bilateral. absent: Accessory Muscle Use , Respiratory Distress - Cardiovascular Exam Cardiovascular Exam: REGULAR RHYTHM Additional comments: high blood pressure found in vitals - GI/Abdominal Exam GI & Abdominal Exam: Soft, Normal Bowel Sounds. absent: Distended, Tenderness, Pulsatile Mass - Extremities Exam Extremities Exam: Full ROM, Normal Inspection. absent: Pedal Edema - Back Exam Back Exam: Full ROM, NORMAL INSPECTION - Neurological Exam Neurological Exam: Alert, Awake, Normal Gait - Psychiatric Exam Psychiatric exam: Normal Affect, Normal Mood - Skin Skin Exam: Dry, Intact, Normal Color, Warm Assessment and Plan - Assessment and Plan (Free Text) Assessment: 66F presents bowel obstruction 2/2 to anastamosis site Plan: c/w with current medical management patient is scheduled for colostomy on Wednesday at 7:30am NPOpM d/w Dr. Aaron Meng, DO PGY1
[2017-01-12] MEDS: Morphine 2 mg/ml ISec IVP PRN ×2 (11:53→16:04)
--- NOTE | 2017-01-12 12:22 | PN ---
DATE: 01/12/2017 SUBJECTIVE: I saw Jyothi sitting out of bed to chair. She does saw Dr. Moreno, the oncologist. She is comfortable. She understands going to surgery tomorrow with Dr. Walker for diverting colostomy. She has a large bowel obstruction around the area of the anastomosis before she had colon cancer. She is on Caltrate, Colace, Norvasc, IV fluids, Toradol, Tylenol and Zofran. PHYSICAL EXAMINATION: VITAL SIGNS: She has a 98 temperature, 91 pulse, 160/90 blood pressure, 19 respiratory rate, 100% of O2 saturation on room air. HEENT: Head is atraumatic, normocephalic. Throat is moist. NECK: Supple. HEART: Regular rate. LUNGS: Clear to auscultation. ABDOMEN: Soft, decreased bowel sounds, but clear. EXTREMITIES: No edema. LABORATORY DATA: She currently had 5.7 white count, 12.8 hemoglobin, 37.5 hematocrit with 266 platelets. INR is 1.05. Sodium 137; potassium 3.5, we will give her potassium today; BUN 21; creatinine 0.6. GFR is greater than 60. Sugar is 81. Calcium is 9.6. AST is 145, ALT is 182, alkaline phosphatase is 858. Total protein is 7.4, total bilirubin is 1.8. Urine was few. ASSESSMENT AND PLAN: She is being seen by surgery, gastroenterology. I will call in cardiology for optimization before surgery tomorrow and I will give her some potassium today. She has got a large bowel obstruction at the anastomosis of a colon cancer. Noah Smith DO
--- NOTE | 2017-01-12 13:16 | PN ---
DATE: SUBJECTIVE: The patient seen she is distended as before has some crampy pain last night that is resolved. PHYSICAL EXAMINATION: ABDOMEN: Nontender. LABORATORY DATA: White count is normal. ASSESSMENT AND PLAN: She has colonic obstruction, the gastrointestinal people do not think it can be stented, so plan for a colostomy. Discussed the case with Dr. Rico. I have a plan for tomorrow morning; however, any urgency or change, might need emergency colostomy. Virgilio Walker MD
--- NOTE | 2017-01-12 16:06 | RAD ---
HISTORY: OR COMPARISON: No prior. FINDINGS: LUNGS: No active pulmonary disease. PLEURA: No significant pleural effusion identified, no pneumothorax apparent. CARDIOVASCULAR: Normal. OSSEOUS STRUCTURES: No significant abnormalities. VISUALIZED UPPER ABDOMEN: Normal. OTHER FINDINGS: Right-sided Port-A-Cath IMPRESSION: No active disease.
--- NOTE | 2017-01-12 17:36 | CARD ---
APPROVED REPORT EKG Measurement Heart [id number] <Conclusion> Normal sinus rhythm Nonspecific T wave abnormality Abnormal ECG
[2017-01-12] MEDS ORDERED: metroNIDAZOLE IV 500 mg/100 ml 500 MG/100 ML BAG ONE (18:25)
[2017-01-12] MEDS ORDERED: Propofol 10 mg/ml Inj (20 ML) ONE ×2 (18:32→20:20)
[2017-01-12] MEDS ORDERED: Succinylcholine 200 mg/10 ml Inj IV ONE (18:33)
[2017-01-12] MEDS ORDERED: Midazolam 2 MG/2 ML VIAL ONE (18:33)
[2017-01-12] MEDS ORDERED: Rocuronium 10 mg/ml (5 ml) ONE (18:44)
[2017-01-12] MEDS ORDERED: Lactated Ringer's 1,000 ML IV SCH ×2 (20:02→20:36)
[2017-01-12] MEDS ORDERED: HYDROmorphone 0.5 mg/0.5 ml ISec IVP PRN ×2 (20:02→20:36)
[2017-01-12] MEDS ORDERED: Liquid Adhesive TOP ONE (20:14)
--- NOTE | 2017-01-12 20:36 | PCM.SURG1 ---
Surgeon's Initial Post Op Note - Surgeon's Notes Surgeon: Dr. Rico Mold Cooler: Dr. Higginbotham PGY3, Dr. Yusuf PGY1, Student Dr. Barros Type of Anesthesia: General Endo Pre-Operative Diagnosis: large bowel obstruction Operative Findings: see operative report Post-Operative Diagnosis: same Operation Performed: creation of loop colostomy, lysis of adhesions and colonic decompression Specimen/Specimens Removed: none Estimated Blood Loss: EBL {In ML}: 15 Blood Products Given: N/A Drains Used: No Drains, Ostomy Device Post-Op Condition: Good Date of Surgery/Procedure: 01/12/17 Time of Surgery/Procedure: 20:35
[2017-01-12] MEDS ORDERED: HYDROmorphone 0.5 mg/0.5 ml ISec ONE ×2 (20:59→21:15)
[2017-01-12] MEDS ORDERED: HYDROmorphone 0.5 mg/0.5 ml ISec IVP ONE ×2 (21:05→21:20)
--- NOTE | 2017-01-12 22:41 | CON ---
DATE: 01/12/2017 HISTORY OF PRESENT ILLNESS: The patient is a 66-year-old woman who presents with abdominal pain. She was found to have increased activity on PET scan in the liver as well as the rectal sigmoid area. The patient has a history of metastatic colonic CA for several years. The patient surgery in the morning. PAST MEDICAL HISTORY: The patient's past medical history is notable for hypertension, in which she has taken amlodipine. She denies diabetes mellitus, denies previous cardiac history. No history of myocardial infarction. No chest pain. No shortness of breath. SOCIAL HISTORY: The patient smoked years ago and has not smoked for many years. REVIEW OF SYSTEMS: A 14-point review of systems is free of cardiac symptomatology. PHYSICAL EXAMINATION: GENERAL: VITAL SIGNS: The blood pressure is 160/ 90. The heart rate is in the 90s. NECK: Negative JVD. LUNGS: Without rales. HEART: S1, S2. EXTREMITIES: Without edema. LABORATORY: The EKG is within normal limits. Laboratory reveals BUN and creatinine unremarkable. Liver enzymes are elevated. Hemoglobin is 12.8. IMPRESSION 1. Metastatic colon carcinoma. 2. Abdominal pain. 3. History of hypertension. 4. Questionable small bowel obstruction. 5. Metastatic involvement of the liver. Given these findings, we will add low-dose beta blockers to her amlodipine for better blood pressure control. There is no evidence for acute ischemia nor is there evidence for CHF. Jose Sanchez MD
[2017-01-12] MEDS: Phytonadione 10 mg/ml Inj (Adult) SC SCH (23:00)
[2017-01-13] MEDS: metroNIDAZOLE IV 500 mg/100 ml 500 MG/100 ML BAG IVPB SCH ×3 (02:49→18:55)
[2017-01-13] MEDS: cefOXitin Sodium 1 GM in Sodium Chloride 0.9% 100 ML IV SCH ×3 (03:51→17:46)
[2017-01-13] MEDS: Phytonadione 10 mg/ml Inj (Adult) SC SCH ×2 (07:21→14:01)
--- NOTE | 2017-01-13 07:26 | CP.PCM.PN ---
Subjective - Date & Time of Evaluation Date of Evaluation: 01/13/17 Time of Evaluation: 07:23 - Subjective Subjective: General Surgery Progress note for Dr. Rico Patient tolerated procedure well yesterday 850cc from pena overnight (post procedure) 1 full bag of colostomy overflowed overnight and 3/4 of the bag was full at bedside. Patient states this is the best sleep she has had in a long time. Patient tolerating pain well. Patient denies F/C, N/V, Objective - Vital Signs/Intake and Output Vital Signs (last 24 hours): Temp Pulse Resp BP Pulse Ox 98.3 F 89 17 149/82 98 01/12/17 21:35 01/12/17 21:35 01/12/17 21:35 01/12/17 21:35 01/12/17 21:35 Intake and Output: 01/13/17 01/13/17 06:59 18:59 Intake Total 0 0 Output Total 300 850 Balance -300 -850 - Medications Medications: Current Medications Acetaminophen (Tylenol 325mg Tab) 650 mg PO Q4H PRN PRN Reason: Pain, Mild (1-3) Amlodipine Besylate (Norvasc) 10 mg PO DAILY [facility] Last Admin: 01/12/17 10:56 Dose: Not Given Calcium Carbonate (Caltrate) 600 mg PO DAILY PRN PRN Reason: GI distress Last Admin: 01/11/17 17:32 Dose: 600 mg Docusate Sodium (Colace) 100 mg PO BID [facility] Last Admin: 01/12/17 17:20 Dose: Not Given Heparin Sodium (Porcine) (Heparin) 5,000 units SC Q12 [facility] PRN Reason: Protocol Hydromorphone HCl (Dilaudid) 0.5 mg IVP Q3 PRN PRN Reason: Pain, moderate (4-7) Hydromorphone HCl (Dilaudid) 1 mg IVP Q4H PRN PRN Reason: Pain, severe (8-10) Lactated Ringer's (Lactated Ringer's) 1,000 mls @ 100 mls/hr IV .Q10H [facility] Cefoxitin Sodium 1 gm/ Sodium (Chloride) 100 mls @ 100 mls/hr IV Q8H [facility] PRN Reason: Protocol Stop: 01/14/17 03:44 Last Admin: 01/13/17 03:51 Dose: 100 mls/hr Metronidazole (Flagyl) 500 mg in 100 mls @ 100 mls/hr IVPB Q8H [facility] PRN Reason: Protocol Stop: 01/14/17 03:44 Last Admin: 01/13/17 02:49 Dose: 100 mls/hr Ketorolac Tromethamine (Toradol) 30 mg IVP Q6 PRN PRN Reason: Pain, moderate (4-7) Last Admin: 01/12/17 08:55 Dose: 30 mg Metoprolol Tartrate (Lopressor) 25 mg PO BID [facility] Last Admin: 01/12/17 17:18 Dose: 25 mg Ondansetron HCl (Zofran Inj) 4 mg IVP Q4H PRN PRN Reason: Nausea/Vomiting Last Admin: 01/11/17 06:42 Dose: 4 mg Phytonadione (Vitamin K Inj) 10 mg SC Q8 [facility] Stop: 01/13/17 14:01 Last Admin: 01/12/17 23:00 Dose: 10 mg - Labs Labs: 01/12/17 05:45 01/12/17 05:45 PT 11.3 Seconds (9.9-11.8) 01/09/17 20:15 INR 1.05 (0.93-1.08) 01/09/17 20:15 APTT 35.2 Seconds (23.7-30.8) H 01/09/17 20:15 - Constitutional Appears: No Acute Distress - Head Exam Head Exam: NORMAL INSPECTION - Eye Exam Eye Exam: EOMI, Normal appearance - ENT Exam ENT Exam: Mucous Membranes Moist - Neck Exam Neck Exam: Full ROM, Normal Inspection - Respiratory Exam Respiratory Exam: Clear to Ausculation Bilateral, NORMAL BREATHING PATTERN - Cardiovascular Exam Cardiovascular Exam: REGULAR RHYTHM. absent: Bradycardia, Tachycardia - GI/Abdominal Exam GI & Abdominal Exam: Soft, Tenderness - Extremities Exam Extremities Exam: Full ROM, Normal Inspection. absent: Pedal Edema - Neurological Exam Neurological Exam: Alert, Awake, Oriented x3 - Psychiatric Exam Psychiatric exam: Normal Affect, Normal Mood - Skin Skin Exam: Dry, Intact, Normal Color, Warm Assessment and Plan - Assessment and Plan (Free Text) Assessment: 66F presents bowel obstruction 2/2 to anastamosis site s/p loop colostomy placement, decompression, and lysis of adhesions POD#1 Plan: Plan: ISS in place, patient isntructed to use it c/w with current medical management patient is scheduled for colostomy on Wednesday at 7:30am diet: CLD d/w Dr. Trisha Meng, DO PGY1
[2017-01-13 07:45] LABS: HEMATOCRIT 36.4 % (36.0-48.0); MEAN CELL VOLUME 93.8 fl (80.0-105.0); MEAN CORPUSCULAR HGB CONC 35.2 g/dl (31.0-37.0); MEAN PLATELET VOLUME 9.7 fl (7.0-11.0); RED CELL DISTRIBUTION WIDTH 14.2 % (11.5-14.5)
--- NOTE | 2017-01-13 07:52 | OP ---
PROCEDURE DATE: 01/12/2017 PREOPERATIVE DIAGNOSES: Obstructed colon and metastatic colon cancer. POSTOPERATIVE DIAGNOSES: Obstructed colon and metastatic colon cancer. PROCEDURE: Transverse loop colostomy. SURGEON: Dr. Rico. PERIPHERAL EDP EQUIPMENT OPERATOR: Dr. Higginbotham and Dr. Yusuf. ANESTHESIOLOGIST: Dr. Saldana. ANESTHESIA: General endotracheal anesthesia. ESTIMATED BLOOD LOSS: Minimal. SPECIMEN: None. DESCRIPTION OF PROCEDURE: The patient is 66-year-old female with history of colon cancer status post resection with metastatic spread to the liver. The patient now came in with obstruction of the area of an anastomosis and was complaining of increasing abdominal pain and discomfort. Today, the patient became significantly more distended of increasing pain and discomfort as well as nausea and therefore a decision was made to proceed to the operating room for loop colostomy of patient. The patient was brought to the operating room and placed on the operating table in supine position. The patient was connected to the EKG, blood pressure and pulse oximetry monitor. The patient then underwent general endotracheal anesthesia and was prepped and draped in the usual sterile fashion. First, a standard time-out procedure took place and everybody in the room agreed as to the patient's identity, diagnoses, and procedure to be performed. Using #15 blade incision was made in midline at about mid epigastrium and extended for about 10 cm. This was carefully carried through the subcutaneous fat down to fascia and access to the abdominal cavity was obtained. There is some omental adhesions of the omentum to the anterior abdominal wall which were carefully taken down. The bowel appeared to be extremely distended especially the colon and cecum. At this point, I decided to proceed with dissection of the transverse colon and carefully took off the omentum off the portion of the transverse colon, she was exposed for the loop colostomy. Due to the severe pressure within the bowel the patient was placed on the loop of the transverse colon which was brought up and the content of the large bowel was suctioned out due to the thickness of the stool. A colonic lavage was done with water in order to lift up most of the stool from the both proximal and distal colon. Once this was done, the portion was closed and abdominal cavity was then carefully closed leaving adequate opening for the loop colostomy. The bridge which was placed through the mesentery underneath a colon was now sutured to the edges of the skin and davidson of the colon loops that were brought up for the colostomy were also sutured to the edges of the fascia using 3-0 silk stitches. Once this was done, I then proceeded to closure of the skin below the colostomy opening. The colon was now transected at the antimesenteric portion of the wall and colostomy was matured. Colostomy appliance was attached to the colostomy opening and fixed to the anterior abdominal wall. The patient tolerated the procedure well and there were no complications. The patient was awakened, extubated, and transferred to recovery room for further observation. Olegario Rico MD
[2017-01-13 07:55] LABS: INR 1.1 (0.93-1.08)
[2017-01-13 08:03] LABS: ALB/GLOB RATIO 1.1 (1.1-1.8); ALKALINE PHOSPHATASE 707 U/L (38-133); ALT/SGPT 177 U/L (7-56); AST/SGOT 142 U/L (15-39); BILIRUBIN,TOTAL 1.6 mg/dL (0.2-1.3); BLOOD UREA NITROGEN 16 mg/dL (7-21); CALCIUM 8.7 mg/dL (8.4-10.5); CARBON DIOXIDE 26 mmol/L (21-33); CHLORIDE 101 mmol/L (98-107); GFR AFRICAN-AMERICAN > 60; GLUCOSE,RANDOM 107 mg/dL (70-110); POTASSIUM 4.3 mmol/L (3.6-5.0); SODIUM 135 mmol/L (132-148); TOTAL PROTEIN 6.4 g/dL (5.8-8.3)
[2017-01-13] MEDS: Potassium Ch 20mEq in D5-1/2NS 1,000 ML IV SCH ×2 (08:12→19:21)
--- NOTE | 2017-01-13 08:17 | CON ---
ONCOLOGY CONSULTATION DATE: 01/12/2017 HISTORY OF PRESENT ILLNESS: This is a 66-year-old woman with colon cancer with metastatic to her lung and to her liver. She presented in 2012 with liver metastases and lung metastasis already. She had a resection with anastomosis and we over the four years have been giving her various different kinds of chemotherapy including FOLFOX, FOLFIRI , Avastin and radiofrequency ablation of liver metastasis. Most recently, she started developing an increasing CEA level around November. I saw the PET and CAT scan, which showed progressive cancer of the liver, lungs, and her anastomotic site. However, she was not having any side effects, so we changed her chemotherapy. However, over the last two to three weeks, she did have an increasing constipation and found that she could not really move her bowels at all and severe pain, came into office with the anastomotic recurrence. I spoke to her today, she is in pain from the cramping pain of the blockage. PHYSICAL EXAMINATION: SKIN: No petechia. No bruises. HEENT: Anicteric. NODES: Nonpalpable regions. LUNGS: Clear. tenderness. HEART: S1 and S2. ABDOMEN: There is no ascites. No rebound, though generalized tenderness, but no rebound. EXTREMITIES: No edema. GARAGE SUPERVISOR: No focal finding. ASSESSMENT AND PLAN: The patient will go apparent colostomy. I spoke with Dr. Walker and I am in agreement with his procedure. We will be following her. Lloyd Moreno MD
--- NOTE | 2017-01-13 13:44 | PN ---
DATE: 01/13/2017 SUBJECTIVE: The patient is eating after surgery yesterday. She feels well. PHYSICAL EXAMINATION: VITAL SIGNS: Blood pressure 149/98, the heart rate is in the 80s. NECK: Negative JVD. LUNGS: Decreased breath sounds without rales. HEART: S1, S2. EXTREMITIES: Without change. LABORATORY DATA: Hemoglobin is 12.8. Chemistries, LFTs remain elevated. IMPRESSION: 1. Status post abdominal surgery. 2. Colon cancer. 3. History of hypertension. 4. Elevated LFTs. Given these findings, the patient is doing well post surgery. She is able to take p.o. with resolution of her abdominal pain. Jose Sanchez MD
--- NOTE | 2017-01-13 14:09 | PN ---
SUBJECTIVE: I saw Jyothi resting in bed this morning. She slept well last night. She is status post diverting colostomy, lysis of adhesions, decompression. She has a history of colon cancer removal and at that site she has a large bowel obstruction. She is feeling much better this morning. Good spirits. PHYSICAL EXAMINATION: VITAL SIGNS: Temperature 98.3, pulse 89, blood pressure 149/82, respiratory rate 17, 98% O2 sat on 3 L nasal cannula. HEENT: Head is atraumatic, normocephalic. Throat is moist. NECK: Supple. HEART: Regular rate. LUNGS: Decreased breath sounds, but clear. She is to take deep breaths, 10 breaths every hour. She understands that her belly has got a colostomy with bag full of gas. EXTREMITIES: No edema. MEDICATIONS: She is currently on Caltrate, cefoxitin, Colace, Dilaudid for pain, Flagyl IV, heparin, lactated Ringer's, Lopressor, Norvasc, Toradol, Tylenol, vitamin K, and Zofran. LABORATORY DATA: She has a white count 5.7, hemoglobin 12.8, hematocrit 37.5, 263 platelets. Sodium 137, potassium 3.5, she had a potassium replacement, BUN 21, creatinine 0.6. GFR is greater than 60. Sugar is 81, calcium is 7.6. Total bilirubin is 1.8, AST is 145, ALT is 182, alkaline phosphatase 858. Total protein was 7.4 that was yesterday's labs, waiting for this morning's to populate. Also check labs tomorrow. We have to get her starting to move and she is to take deep breaths every hour. We will get her incentive spirometry at bedside, also out of bed to chair. She is on a liquid diet as per surgery. The patient is status post diverting colostomy, lysis of adhesions, decompression, has hypertension and colon cancer with mets. Noah Smith DO
[2017-01-13] MEDS: HYDROmorphone 1 mg/ml ISec IVP PRN (14:41)
--- NOTE | 2017-01-13 15:36 | PN ---
DATE: 01/13/2017 SUBJECTIVE: The patient is lying in bed comfortable. She underwent a transverse colostomy last night for a obstructing recurrent colon cancer in her rectosigmoid junction. The patient is resting comfortably and is comfortable. PHYSICAL EXAMINATION: VITAL SIGNS: Reveal temperature of 98.1, blood pressure 149/98, heart rate of 87. ABDOMEN: Soft, less distention. She has a transverse colostomy producing stool. LABORATORY DATA: Reveal hemoglobin 12.8, white blood cell count 10, BUN 16, creatinine 0.6. IMPRESSION: Unfortunate 66-year-old female with a colonic obstruction secondary to recurrent colon cancer at her surgical anastomoses in the rectosigmoid junction. She is status post transverse colostomy. Her long-term prognosis is poor. She is also known to have liver mets and lymphadenopathy in the pelvis. RECOMMENDATIONS: Advance diet as tolerated as per surgery. When diet is tolerated, the patient can be discharged home with outpatient followup with her primary medical doctor as well as oncology. Arvind Spears MD MTDD
[2017-01-14] MEDS: metroNIDAZOLE IV 500 mg/100 ml 500 MG/100 ML BAG IVPB SCH (01:48)
[2017-01-14] MEDS: cefOXitin Sodium 1 GM in Sodium Chloride 0.9% 100 ML IV SCH (01:48)
[2017-01-14] MEDS: HYDROmorphone 1 mg/ml ISec IVP PRN ×2 (01:54→14:19)
[2017-01-14 06:40] LABS: HEMATOCRIT 35.3 % (36.0-48.0); MEAN CELL VOLUME 95.7 fl (80.0-105.0); MEAN CORPUSCULAR HEMOGLOBIN 31.7 pg (25.0-35.0); MEAN CORPUSCULAR HGB CONC 33.1 g/dl (31.0-37.0); MEAN PLATELET VOLUME 9.7 fl (7.0-11.0); RED CELL DISTRIBUTION WIDTH 14.4 % (11.5-14.5); WHITE BLOOD COUNT 5.9 10^3/ul (4.5-11.0)
[2017-01-14 06:56] LABS: ALB/GLOB RATIO 1.1 (1.1-1.8); ALKALINE PHOSPHATASE 645 U/L (38-133); ALT/SGPT 177 U/L (7-56); AST/SGOT 155 U/L (15-39); BILIRUBIN,TOTAL 1.3 mg/dL (0.2-1.3); BLOOD UREA NITROGEN 11 mg/dL (7-21); CALCIUM 8.8 mg/dL (8.4-10.5); CARBON DIOXIDE 30 mmol/L (21-33); CHLORIDE 102 mmol/L (98-107); GFR AFRICAN-AMERICAN > 60; GLUCOSE,RANDOM 104 mg/dL (70-110); POTASSIUM 3.5 mmol/L (3.6-5.0); SODIUM 138 mmol/L (132-148); TOTAL PROTEIN 6.2 g/dL (5.8-8.3)
[2017-01-14] MEDS ORDERED: Potassium Chloride 20 mEq ER Tab PO ONE (08:05)
[2017-01-14 08:27] VITALS: O2SAT 100
--- NOTE | 2017-01-14 10:55 | CP.PCM.PN ---
Subjective - Date & Time of Evaluation Date of Evaluation: 01/14/17 Time of Evaluation: 10:52 - Subjective Subjective: Gen Sx: Dr Rico Pt S&E. NITINO. Having excellent output in colostomy. POD#2. Pt reports she feels much better now. Tolerating regular diet. Pain well controlled. Objective - Vital Signs/Intake and Output Vital Signs (last 24 hours): Temp Pulse Resp BP Pulse Ox 97.7 F 65 21 140/88 100 01/14/17 08:26 01/14/17 09:28 01/14/17 08:26 01/14/17 09:28 01/14/17 08:26 Intake and Output: 01/14/17 01/14/17 06:59 18:59 Intake Total 1170 Output Total 100 Balance 1070 - Medications Medications: Current Medications Acetaminophen (Tylenol 325mg Tab) 650 mg PO Q4H PRN PRN Reason: Pain, Mild (1-3) Amlodipine Besylate (Norvasc) 10 mg PO DAILY [facility] Last Admin: 01/14/17 09:28 Dose: 10 mg Calcium Carbonate (Caltrate) 600 mg PO DAILY PRN PRN Reason: GI distress Last Admin: 01/11/17 17:32 Dose: 600 mg Docusate Sodium (Colace) 100 mg PO BID [facility] Last Admin: 01/12/17 17:20 Dose: Not Given Heparin Sodium (Porcine) (Heparin) 5,000 units SC Q12 [facility] PRN Reason: Protocol Last Admin: 01/14/17 09:29 Dose: 5,000 units Hydromorphone HCl (Dilaudid) 0.5 mg IVP Q3 PRN PRN Reason: Pain, moderate (4-7) Hydromorphone HCl (Dilaudid) 1 mg IVP Q4H PRN PRN Reason: Pain, severe (8-10) Last Admin: 01/14/17 01:54 Dose: 1 mg Ketorolac Tromethamine (Toradol) 30 mg IVP Q6 PRN PRN Reason: Pain, moderate (4-7) Last Admin: 01/12/17 08:55 Dose: 30 mg Metoprolol Tartrate (Lopressor) 25 mg PO BID [facility] Last Admin: 01/14/17 09:28 Dose: 25 mg Ondansetron HCl (Zofran Inj) 4 mg IVP Q4H PRN PRN Reason: Nausea/Vomiting Last Admin: 01/11/17 06:42 Dose: 4 mg - Labs Labs: 01/14/17 06:15 01/14/17 06:15 PT 11.9 Seconds (9.9-11.8) H 01/13/17 07:00 INR 1.10 (0.93-1.08) H 01/13/17 07:00 APTT 35.2 Seconds (23.7-30.8) H 01/09/17 20:15 - Constitutional Appears: Non-toxic, No Acute Distress - ENT Exam ENT Exam: Mucous Membranes Moist - Respiratory Exam Respiratory Exam: absent: Accessory Muscle Use, Respiratory Distress - Cardiovascular Exam Cardiovascular Exam: REGULAR RHYTHM - GI/Abdominal Exam GI & Abdominal Exam: Soft. absent: Distended, Firm, Guarding, Rigid, Tenderness - Neurological Exam Neurological Exam: Alert, Awake, Oriented x3 - Psychiatric Exam Psychiatric exam: Normal Affect, Normal Mood - Skin Skin Exam: Normal Color, Warm Assessment and Plan - Assessment and Plan (Free Text) Assessment: 66F POD#2 s/p transverse colostomy for distal colon obstruction Plan: pt doing well clear for D/C would recommend TCU at this point in time will remove colostomy bridge prior to D/C home discussed with Dr Trisha Aguayo, PGY3
--- NOTE | 2017-01-14 13:34 | PN ---
DATE: 01/14/2017 SUBJECTIVE: The patient is without shortness of breath, without chest pain. She is eating well and has moved her bowels. PHYSICAL EXAMINATION VITAL SIGNS: Blood pressure 140/88, heart rate is in the 60s. NECK: Negative JVD. LUNGS: Without rales. HEART: Reveal S1 and S2. EXTREMITIES: Without edema. LABORATORY DATA: The hemoglobin is 11.7. Chemistries: BUN and creatinine unremarkable. Potassium is 3.5. IMPRESSION 1. Successful recovery from her abdominal surgery. 2. History of colon carcinoma. 3. Hypertension which is stable. 4. Elevated liver function tests. PLAN: Given these findings, the patient is doing well. No further cardiac intervention is necessary at this time. Jose Sanchez MD
[2017-01-14 16:34] VITALS: BP 112/63; PULSE 67; RESP 18; TEMP 98.7
--- NOTE | 2017-01-14 20:04 | PN ---
DATE: 01/14/2017 SUBJECTIVE: The patient is lying in bed comfortable. She continues to pass stool through her colostomy. She denies any abdominal pain. She is tolerating solid foods. PHYSICAL EXAMINATION: VITAL SIGNS: Reveal temperature of 98.7, blood pressure 112/63, heart rate 67. ABDOMEN: Soft. She has a transverse colostomy producing stool. EXTREMITIES: Show no edema. LABORATORY DATA: Reveal white blood cell count 5.9, hemoglobin 11.7. Chemistries reveal AST 155, ALT 177, alkaline phosphatase 645. IMPRESSION: A 66-year-old female with recurrent obstructing colon cancer with known liver mets. She is status post transverse colostomy day 2. She is tolerating solid foods. RECOMMENDATIONS: The patient is stable from a GI standpoint. Her long-term prognosis is extremely poor given the fact that she has had colon cancer with liver metastasis for the last 4 years, now with recurrent obstruction of her colon cancer. The patient is to follow up with her oncologist, Dr. Moreno. Arvind Spears MD
--- NOTE | 2017-01-15 02:16 | DS ---
HOSPITAL COURSE: I am hoping we could discharge her today. She is resting comfortably in bed. She is status post diverting colostomy for recurrent colon cancer at the anastomosis site. She also has liver mets and lymphadenopathy. She is currently on Caltrate, Catapres, Colace, Dilaudid p.r.n., heparin, Lopressor, Norvasc, Toradol, Tylenol and Zofran. She is comfortable in bed she tells she is eating and the colostomy is putting out gas. She is being seen by GI and surgery and cardiology. PHYSICAL EXAMINATION: VITAL SIGNS: 98.8 temperature, 72 pulse, 128/81 blood pressure, 18 respiratory rate, 97% of O2 saturation on room air. HEENT: Head is atraumatic, normocephalic. Throat is moist. NECK: Supple. HEART: Regular rate. LUNGS: Clear to auscultation. ABDOMEN: Soft, positive bowel sounds. Positive colostomy. EXTREMITIES No edema. LABORATORY DATA: She has a white count of 5.9, hemoglobin 11.7, hematocrit 35.3, platelets of 213. Sodium 138; potassium 3.5, we gave her potassium today; BUN 11; creatinine 0.5, GFR is greater than 60, sugar is 104, calcium is 8.8. Total bilirubin is 1.3 better, AST is 145, ALT is 177, alkaline phosphatase 625. Total protein is 6.2, albumin is 3.2, globulin 3, lipase is 26. ASSESSMENT AND PLAN: I am hoping we could discharge her home after colostomy teaching and it is okay with surgery and she is eating well and she is walking. If that is okay, we will try and discharge her. Get the prescriptions ready. She will follow up with her surgeon and primary care doctor in the next 5 days. If we get okay, Jyothi would be discharged today. She is status post diverting colostomy for reoccurrence of colon cancer at anastomosis site. Noah Smith DO
--- NOTE | 2017-01-18 15:51 | PN ---
DATE: SUBJECTIVE: I saw Jyothi in her room in TCU. She is doing great. She is walking great. She is eating great. She is in good spirits. She is on Caltrate, Dilaudid as needed, heparin, potassium replacement, Lopressor, Norvasc, Tylenol, and Zofran. PHYSICAL EXAMINATION: VITAL SIGNS: 97.6 temperature, 84 pulse, 115/70 blood pressure, 14 respiratory rate, 99% O2 sat on room air. GENERAL: She is eating, walking, colostomy is working and she is in good spirits. HEENT: Head is atraumatic, normocephalic. Throat moist. NECK: Supple. HEART: Regular rate. LUNGS: Clear to auscultation. ABDOMEN: Soft. Positive colostomy. EXTREMITIES: No edema. LABORATORY DATA: 6.2 white count, 12.4 hemoglobin, 36.5 hematocrit with 277 platelets. 140 sodium, potassium 3.4. She is already on potassium, we will continue that. BUN 9, creatinine 0.5, GFR is greater than 60, sugar is 96, calcium 9.5. Total bilirubin is 1.1. AST is 106, ALT is 125, ALP is 799. Total protein 7.1. Albumin is 3.5. PLAN: She is being seen by surgery. Continue with physical therapy and treatment for her, recurrence of colon cancer and status post diverting colostomy. We will check her labs tomorrow. Noah Smith DO
== END 2017-01-14 18:47 | DRG 330 ==
LOC: ED 19:38 → ERH 22:56 → 3RSO 01-10 03:02
PROVIDERS: ADMIT Family Medicine; ATTEND Family Medicine
PROC: 0D1L0Z4 Bypass Transverse Colon to Cutaneous, Open Approach (ICD-10-PCS; principal; 2017-01-12 17:30)
DX: C18.9 Malignant neoplasm of colon, unspecified (principal); K56.69 Other intestinal obstruction; C78.00 Secondary malignant neoplasm of unspecified lung; C78.7 Secondary malignant neoplasm of liver and intrahepatic bile duct; I10 Essential (primary) hypertension; R59.1 Generalized enlarged lymph nodes; Z87.891 Personal history of nicotine dependence

== ENCOUNTER 2017-01-14 18:52 | Inpatient (IN) | payer MEDICARE, OTHER ==
[2017-01-14] MEDS ORDERED: HYDROmorphone 1 mg/ml ISec IVP PRN (20:55)
--- NOTE | 2017-01-15 07:23 | CP.PCM.PN ---
Subjective - Date & Time of Evaluation Date of Evaluation: 01/15/17 Time of Evaluation: 07:20 - Subjective Subjective: SURGERY NOTE FOR DR. NUGENT Patient S&E. RAFIA. Patient is comfortable lying in bed. Pain is well controlled. Patient is tolerating regular diet. Denies nausea, vomiting, fever, chills. Patient received colostomy bag training last night. Colostomy output has slowed down. Objective - Vital Signs/Intake and Output Vital Signs (last 24 hours): Temp Pulse Resp BP Pulse Ox 98.2 F 83 20 122/79 98 01/15/17 06:00 01/15/17 06:00 01/15/17 06:00 01/15/17 06:00 01/15/17 06:00 - Medications Medications: Current Medications Acetaminophen (Tylenol 325mg Tab) 650 mg PO Q4H PRN; Protocol PRN Reason: Pain, Mild (1-3) Amlodipine Besylate (Norvasc) 10 mg PO DAILY [facility] PRN Reason: Protocol Calcium Carbonate (Caltrate) 600 mg PO DAILY PRN; Protocol PRN Reason: GI distress Heparin Sodium (Porcine) (Heparin) 5,000 units SC 0600,1800 [facility] PRN Reason: Protocol Last Admin: 01/15/17 05:31 Dose: 5,000 units Hydromorphone HCl (Dilaudid) 0.5 mg IVP Q3H PRN; Protocol PRN Reason: Pain, moderate (4-7) Hydromorphone HCl (Dilaudid) 1 mg IVP Q4H PRN; Protocol PRN Reason: Pain, severe (8-10) Last Admin: 01/14/17 22:38 Dose: 1 mg Metoprolol Tartrate (Lopressor) 25 mg PO BRKDIN [facility] PRN Reason: Protocol Ondansetron HCl (Zofran Inj) 4 mg IVP Q4H PRN; Protocol PRN Reason: Nausea/Vomiting - Constitutional Appears: Non-toxic, No Acute Distress - ENT Exam ENT Exam: Mucous Membranes Moist - Respiratory Exam Respiratory Exam: Clear to Ausculation Bilateral, NORMAL BREATHING PATTERN - Cardiovascular Exam Cardiovascular Exam: REGULAR RHYTHM, +S1, +S2 - GI/Abdominal Exam GI & Abdominal Exam: Soft. absent: Distended, Firm, Guarding, Rigid, Tenderness Additional comments: ostomy in place and patent - Extremities Exam Extremities Exam: absent: Pedal Edema, Tenderness - Neurological Exam Neurological Exam: Alert, Awake, Oriented x3 - Psychiatric Exam Psychiatric exam: Normal Affect, Normal Mood - Skin Skin Exam: Dry, Intact, Normal Color, Warm Assessment and Plan - Assessment and Plan (Free Text) Assessment: Patient is a 66 year old female POD #3 s/p transverse loop colostomy for distal colon obstruction Plan: -continue to monitor in TCU/Physical therapy -continue colostomy care, will remove colostomy bridge prior to D/C home -continue medications -continue diet Discussed with Dr. Trisha Bourgeois, PGY2
[2017-01-15] MEDS: HYDROmorphone 0.5 mg/0.5 ml ISec IVP PRN ×2 (09:31→17:16)
--- NOTE | 2017-01-15 13:05 | PN ---
DATE: 01/15/2017 SUBJECTIVE: The patient was seen in transitional care. She is lying in bed comfortable. She is tolerating solid foods. PHYSICAL EXAMINATION: VITAL SIGNS: Reveal temperature of 98.2, blood pressure 130/87, heart rate 92. HEENT: Reveal sclerae to be white. Conjunctivae pink. NECK: Supple. CHEST: Reveal lungs to be clear. HEART: Exam reveals a regular rate and rhythm. ABDOMEN: Soft. She has a midline transverse colostomy producing stool. EXTREMITIES: Show no edema. LABORATORY DATA: No new laboratory data are available. IMPRESSION This is a 66-year-old female with known colon cancer and liver metastases status post colon resection, 4 years ago, now admitted with recurrence of her colon cancer at the rectosigmoid anastomosis with colonic obstruction. She is status post diverting transverse colostomy. She is doing well postoperatively. Obviously her long-term prognosis is extremely poor. RECOMMENDATIONS 1. Continue physical therapy for deconditioning. 2. Continue postop care. 3. Oncology follow up once patient has recovered from her colostomy. Arvind Spears MD
--- NOTE | 2017-01-15 16:22 | HP ---
HISTORY OF PRESENT ILLNESS: Jyothi was just in the hospital site, now she is in the transitional care unit where we I am meeting her. She is a 66-year-old female with a history of colon cancer and now she has large bowel obstruction at the anastomosis site where there is further colon cancer. She went for a diverting colostomy and now she has a colostomy and she is in the transitional care unit for learning the colostomy, physical therapy and being watched by the surgeon. She was getting chemo about three and half weeks ago. She has liver metastases too. ALLERGIES: SHE HAS NO KNOWN DRUG ALLERGIES. SOCIAL HISTORY: She is a former smoker, occasional wine. No drugs. PAST MEDICAL HISTORY: She has hypertension. MEDICATIONS: Presently now, her medication list: Calcium, Dilaudid, heparin, Lopressor, Norvasc, Tylenol, Zofran. REVIEW OF SYSTEMS: She is comfortable in bed, less pain. No acute vision changes or hearing changes. No sore throat. No neck pain. No chest pain or palpitations or shortness of breath or coughing, no mucus. The abdominal pain is much better. She has a colostomy now which is putting out gas. No joint pains. No leg pains. No more nausea, vomiting. No problems urinating. She can move all four extremities. No anxiety, depression, or sweating. PHYSICAL EXAMINATION: VITAL SIGNS She has 98.2 temperature, 83 pulse, 122/79 blood pressure, 20 respiratory rate, 98% O2 saturation on room air. HEENT: Head is atraumatic, normocephalic. Alert, talking to me, smiling. Throat is moist. NECK: Supple. HEART: Regular rate. Normal S1 and S2. LUNGS: Clear to auscultation bilaterally. ABDOMEN: Soft, nontender. Positive bowel sounds. She has got a colostomy in place. EXTREMITIES: No edema. NEUROLOGIC: Cranial nerves II through XII grossly intact. GCS is 15. Speech is normal. Thyroid midline. No palpable lymphadenopathy appreciated. SKIN: Warm and dry. No rashes. LABORATORY DATA: Lab is pending. PLAN: She is going to have consults with her doctors, GI and surgery, physical therapy, colostomy teaching. We will check her labs tomorrow. Noah Smith DO [facility] # [id number]
[2017-01-16] MEDS: HYDROmorphone 0.5 mg/0.5 ml ISec IVP PRN ×4 (00:12→21:29)
[2017-01-16 06:11] LABS: ALKALINE PHOSPHATASE 621 U/L (38-126); ALT/SGPT 143 U/L (7-56); AST/SGOT 128 U/L (14-36); BILIRUBIN,TOTAL 1.2 mg/dL (0.2-1.3); BLOOD UREA NITROGEN 11 mg/dL (7-21); CALCIUM 8.9 mg/dL (8.4-10.5); CARBON DIOXIDE 30 mmol/L (21-33); CHLORIDE 100 mmol/L (98-107); GFR AFRICAN-AMERICAN > 60; GLUCOSE,RANDOM 93 mg/dL (70-110); POTASSIUM 3.3 mmol/L (3.6-5.0); SODIUM 136 mmol/L (132-148); TOTAL PROTEIN 6.1 g/dL (5.8-8.3)
[2017-01-16 06:16] LABS: HEMATOCRIT 33.4 % (36.0-48.0); MEAN CELL VOLUME 95.2 fl (80.0-105.0); MEAN CORPUSCULAR HEMOGLOBIN 32.8 pg (25.0-35.0); MEAN CORPUSCULAR HGB CONC 34.4 g/dl (31.0-37.0); MEAN PLATELET VOLUME 9.8 fl (7.0-11.0); RED CELL DISTRIBUTION WIDTH 14.3 % (11.5-14.5); WHITE BLOOD COUNT 5.4 10^3/ul (4.5-11.0)
--- NOTE | 2017-01-16 09:43 | CP.PCM.PN ---
Subjective - Date & Time of Evaluation Date of Evaluation: 01/16/17 Time of Evaluation: 09:40 - Subjective Subjective: Surgery Pt s&e. NAEON. Denies F/C/N/V/CP/SOB. Stoma has good output. + OOB. + amb. + void. Tolerating diet. Objective - Vital Signs/Intake and Output Vital Signs (last 24 hours): Temp Pulse Resp BP Pulse Ox 97.7 F 76 16 124/84 97 01/16/17 06:00 01/16/17 08:42 01/16/17 06:00 01/16/17 08:42 01/16/17 06:00 - Medications Medications: Current Medications Acetaminophen (Tylenol 325mg Tab) 650 mg PO Q4H PRN; Protocol PRN Reason: Pain, Mild (1-3) Amlodipine Besylate (Norvasc) 10 mg PO DAILY [facility] PRN Reason: Protocol Last Admin: 01/15/17 09:25 Dose: 10 mg Calcium Carbonate (Caltrate) 600 mg PO DAILY PRN; Protocol PRN Reason: GI distress Heparin Sodium (Porcine) (Heparin) 5,000 units SC 0600,1800 [facility] PRN Reason: Protocol Last Admin: 01/16/17 05:29 Dose: 5,000 units Hydromorphone HCl (Dilaudid) 0.5 mg IVP Q3H PRN; Protocol PRN Reason: Pain, moderate (4-7) Last Admin: 01/16/17 05:26 Dose: 0.5 mg Hydromorphone HCl (Dilaudid) 1 mg IVP Q4H PRN; Protocol PRN Reason: Pain, severe (8-10) Last Admin: 01/14/17 22:38 Dose: 1 mg Metoprolol Tartrate (Lopressor) 25 mg PO BRKDIN [facility] PRN Reason: Protocol Last Admin: 01/16/17 08:42 Dose: 25 mg Ondansetron HCl (Zofran Inj) 4 mg IVP Q4H PRN; Protocol PRN Reason: Nausea/Vomiting - Labs Labs: 01/16/17 05:49 01/16/17 05:49 - Constitutional Appears: No Acute Distress - Head Exam Head Exam: ATRAUMATIC, NORMAL INSPECTION, NORMOCEPHALIC - Eye Exam Eye Exam: EOMI, Normal appearance, PERRL Pupil Exam: NORMAL ACCOMODATION, PERRL - ENT Exam ENT Exam: Mucous Membranes Moist, Normal Exam - Neck Exam Neck Exam: Full ROM, Normal Inspection. absent: Lymphadenopathy - Respiratory Exam Respiratory Exam: Clear to Ausculation Bilateral, NORMAL BREATHING PATTERN - Cardiovascular Exam Cardiovascular Exam: REGULAR RHYTHM, +S1, +S2. absent: Murmur - GI/Abdominal Exam GI & Abdominal Exam: Soft, Normal Bowel Sounds. absent: Distended, Firm, Guarding, Rigid, Tenderness, Hernia, Mass, Pulsatile Mass, Rebound Additional comments: Stoma putting out fecal matter with gas. Kirk. Patent. - Exam Exam: NORMAL INSPECTION - Extremities Exam Extremities Exam: Full ROM, Normal Capillary Refill, Normal Inspection. absent : Joint Swelling, Pedal Edema - Back Exam Back Exam: NORMAL INSPECTION - Neurological Exam Neurological Exam: Alert, Awake, CN II-XII Intact, Normal Gait, Oriented x3 - Psychiatric Exam Psychiatric exam: Normal Affect, Normal Mood - Skin Skin Exam: Dry, Intact, Normal Color, Warm Assessment and Plan - Assessment and Plan (Free Text) Assessment: Patient is a 66 year old female POD #4 s/p transverse loop colostomy for distal colon obstruction Plan: -Physical therapy -continue colostomy care, will remove colostomy bridge prior to D/C home -continue medications -continue reg diet Discussed with Dr. Rico
[2017-01-16] MEDS ORDERED: Potassium Chloride 20 mEq ER Tab PO ONE (12:50)
--- NOTE | 2017-01-16 16:13 | PN ---
DATE: 01/16/2017 SUBJECTIVE: I saw Jyothi sitting out of bed, in the chair in the TCU eating her breakfast and lunch. She is doing well. She is in good spirit. She has no complaints to me. She is walking with physical therapy. Still on Caltrate, Dilaudid, heparin, Lopressor, Norvasc, Tylenol, Zofran. She had a diverting colostomy the other day. She is doing remarkably well with her colon cancer and meds. PHYSICAL EXAMINATION: VITAL SIGNS: She has 97.7 temperature, 76 pulse, 124/84 blood pressure, 16 respiratory rate, 97% O2 sat on room air. HEENT: Head is atraumatic, normocephalic. HEART: Regular rate. LUNGS: Clear to auscultation. ABDOMEN: Soft, positive colostomy seems to be functioning. EXTREMITIES: No edema. LABORATORY DATA: She has a 5.4 white count, 11.5 hemoglobin, 33.4 hematocrit with 212 platelets. And 136 sodium, potassium 3.3, and i have replaced potassium for her. She has BUN 11, creatinine 0.5, GFR is greater than 60, sugar is 93, calcium is 8.9. Total bilirubin is 1.2, AST is 120, ALT is 143, alkaline phosphatase 621. Total protein 6.1. ASSESSMENT AND PLAN: She is being seen by GI and surgery. She has known cancer of colon, liver metastasis status post diverting colostomy. She is doing well. Continue with therapy. Teaching her postop care. Replacing the potassium. Checking labs. She understands what is going on. Noah Smith DO
[2017-01-17] MEDS: HYDROmorphone 0.5 mg/0.5 ml ISec IVP PRN ×3 (05:16→23:44)
[2017-01-17 07:18] LABS: HEMATOCRIT 33.2 % (36.0-48.0); MEAN CELL VOLUME 94.9 fl (80.0-105.0); MEAN CORPUSCULAR HEMOGLOBIN 32.3 pg (25.0-35.0); MEAN PLATELET VOLUME 9.7 fl (7.0-11.0); RED CELL DISTRIBUTION WIDTH 14.3 % (11.5-14.5)
[2017-01-17 07:26] LABS: ALKALINE PHOSPHATASE 610 U/L (38-126); ALT/SGPT 128 U/L (7-56); AST/SGOT 109 U/L (14-36); BLOOD UREA NITROGEN 9 mg/dL (7-21); CHLORIDE 103 mmol/L (98-107); GFR AFRICAN-AMERICAN > 60; GLUCOSE,RANDOM 92 mg/dL (70-110); POTASSIUM 3.4 mmol/L (3.6-5.0); SODIUM 140 mmol/L (132-148); TOTAL PROTEIN 6.1 g/dL (5.8-8.3)
--- NOTE | 2017-01-17 07:37 | CP.PCM.PN ---
Subjective - Date & Time of Evaluation Date of Evaluation: 01/17/17 Time of Evaluation: 07:35 - Subjective Subjective: General Surgery progress note for Dr. Rico PT S&E at bedside. RAFIA. Patient tolerating pain well. Patient taking part in her own colostomy care. Denies F/C, N/V, abdominal pain. Patient wants to go home soon. Objective - Vital Signs/Intake and Output Vital Signs (last 24 hours): Temp Pulse Resp BP Pulse Ox 97.7 F 81 16 112/75 97 01/16/17 06:00 01/16/17 17:12 01/16/17 06:00 01/16/17 17:12 01/16/17 06:00 Intake and Output: 01/17/17 01/17/17 06:59 18:59 Intake Total 780 120 Balance 780 120 - Medications Medications: Current Medications Acetaminophen (Tylenol 325mg Tab) 650 mg PO Q4H PRN; Protocol PRN Reason: Pain, Mild (1-3) Amlodipine Besylate (Norvasc) 10 mg PO DAILY [facility] PRN Reason: Protocol Last Admin: 01/16/17 10:20 Dose: 10 mg Calcium Carbonate (Caltrate) 600 mg PO DAILY PRN; Protocol PRN Reason: GI distress Heparin Sodium (Porcine) (Heparin) 5,000 units SC 0600,1800 [facility] PRN Reason: Protocol Last Admin: 01/17/17 05:19 Dose: 5,000 units Hydromorphone HCl (Dilaudid) 0.5 mg IVP Q3H PRN; Protocol PRN Reason: Pain, moderate (4-7) Last Admin: 01/17/17 05:16 Dose: 0.5 mg Hydromorphone HCl (Dilaudid) 1 mg IVP Q4H PRN; Protocol PRN Reason: Pain, severe (8-10) Last Admin: 01/14/17 22:38 Dose: 1 mg Metoprolol Tartrate (Lopressor) 25 mg PO BRKDIN [facility] PRN Reason: Protocol Last Admin: 01/16/17 17:12 Dose: 25 mg Ondansetron HCl (Zofran Inj) 4 mg IVP Q4H PRN; Protocol PRN Reason: Nausea/Vomiting - Labs Labs: 01/17/17 07:11 09/03/17 07:11 - Constitutional Appears: No Acute Distress - Head Exam Head Exam: NORMAL INSPECTION - Eye Exam Eye Exam: EOMI, Normal appearance - ENT Exam ENT Exam: Mucous Membranes Moist - Cardiovascular Exam Cardiovascular Exam: REGULAR RHYTHM. absent: Bradycardia, Tachycardia - GI/Abdominal Exam GI & Abdominal Exam: Soft, Normal Bowel Sounds. absent: Firm, Guarding, Rigid Additional comments: loop colostomy - Back Exam Back Exam: Full ROM, NORMAL INSPECTION - Neurological Exam Neurological Exam: Alert, Awake, Normal Gait - Psychiatric Exam Psychiatric exam: Normal Affect, Normal Mood - Skin Skin Exam: Dry, Intact, Normal Color, Warm Assessment and Plan - Assessment and Plan (Free Text) Assessment: Patient is a 66 year old female POD #5 s/p transverse loop colostomy for distal colon obstruction Plan: -Physical therapy -continue colostomy care, will remove colostomy bridge prior to D/C home -continue medications -continue Heart Healthy diet Discussed with Dr. Rico
[2017-01-17 07:42] LABS: CARBON DIOXIDE 31 mmol/L (21-33)
--- NOTE | 2017-01-17 13:13 | PN ---
DATE: 01/15/2017 SUBJECTIVE: Jyothi in the TCU. She is walking around the room. She is improving. She tells me, she is being a little bit stronger. She is eating well and the colostomy is working fairly well. She is getting instruction on that. She is on Caltrate and Dilaudid as needed for pain status post diverting colostomy for recurrence of colon cancer at the anastomosis site, heparin, Lopressor, Norvasc, Tylenol, and Zofran. PHYSICAL EXAMINATION VITAL SIGNS: Are 98.4 temperature, 75 pulse, 139/84 blood pressure, 18 respiratory rate, 97% O2 sat on room air. HEENT: Head is atraumatic and normocephalic. HEART: Regular rate. LUNGS: Clear to auscultation. ABDOMEN: Soft, positive bowel sounds. Positive colostomy. EXTREMITIES: Have no edema. LABORATORY DATA: She 85 white count, 11.3 hemoglobin, 30.2 hematocrit, 215 platelets. She has 140 sodium, potassium is 3.4, and I am going to replace the potassium. BUN is 9, creatinine 0.5, GFR is greater than 60, sugar is 92, calcium is 9. Total bilirubin is 1, AST is 109, ALT is 128, alkaline phosphatase 610. Total protein is 6.1, albumin is 3.1. ASSESSMENT AND PLAN: She is being seen by GI and I believe Surgery. Treated with aggressive treatment and care TCU and instruction. And I will give her another potassium and will check her labs tomorrow. Dr. Smith dictating on Jyothi David who has large bowel obstruction at the anastomosis site status post diverting colostomy and she was with mets and low potassium. Noah Smith DO
[2017-01-18] MEDS: HYDROmorphone 0.5 mg/0.5 ml ISec IVP PRN ×3 (05:21→23:55)
[2017-01-18 06:32] LABS: HEMATOCRIT 36.5 % (36.0-48.0); MEAN CELL VOLUME 94.8 fl (80.0-105.0); MEAN CORPUSCULAR HEMOGLOBIN 32.2 pg (25.0-35.0); MEAN PLATELET VOLUME 9.9 fl (7.0-11.0); RED CELL DISTRIBUTION WIDTH 14.6 % (11.5-14.5); WHITE BLOOD COUNT 6.2 10^3/ul (4.5-11.0)
--- NOTE | 2017-01-18 06:51 | CP.PCM.PN ---
Subjective - Date & Time of Evaluation Date of Evaluation: 01/18/17 Time of Evaluation: 06:47 - Subjective Subjective: SURGERY NOTE FOR DR. TAVERAS 66F seen examined at bedside. Patient states she is doing well, denies pain, nausea, vomiting. Tolerating regular diet. Objective - Vital Signs/Intake and Output Vital Signs (last 24 hours): Temp Pulse Resp BP Pulse Ox 98.8 F 78 20 132/86 98 01/17/17 22:00 01/17/17 22:00 01/17/17 22:00 01/17/17 22:00 01/17/17 22:00 Intake and Output: 01/17/17 01/18/17 18:59 06:59 Intake Total 840 Balance 840 - Medications Medications: Current Medications Acetaminophen (Tylenol 325mg Tab) 650 mg PO Q4H PRN; Protocol PRN Reason: Pain, Mild (1-3) Amlodipine Besylate (Norvasc) 10 mg PO DAILY [facility] PRN Reason: Protocol Last Admin: 01/17/17 11:13 Dose: 10 mg Calcium Carbonate (Caltrate) 600 mg PO DAILY PRN; Protocol PRN Reason: GI distress Heparin Sodium (Porcine) (Heparin) 5,000 units SC 0600,1800 [facility] PRN Reason: Protocol Last Admin: 01/18/17 05:22 Dose: 5,000 units Hydromorphone HCl (Dilaudid) 0.5 mg IVP Q3H PRN PRN Reason: Pain, moderate (4-7) Last Admin: 01/18/17 05:21 Dose: 0.5 mg Metoprolol Tartrate (Lopressor) 25 mg PO BRKDIN [facility] PRN Reason: Protocol Last Admin: 01/17/17 17:12 Dose: 25 mg Ondansetron HCl (Zofran Inj) 4 mg IVP Q4H PRN; Protocol PRN Reason: Nausea/Vomiting Potassium Chloride (K-Dur 20 Meq Er Tab) 20 meq PO 0800 [facility] - Labs Labs: 01/17/17 07:11 01/17/17 07:11 - Constitutional Appears: Non-toxic, No Acute Distress - Respiratory Exam Respiratory Exam: Clear to Ausculation Bilateral, NORMAL BREATHING PATTERN - Cardiovascular Exam Cardiovascular Exam: REGULAR RHYTHM, +S1, +S2 - GI/Abdominal Exam GI & Abdominal Exam: Soft. absent: Distended, Firm, Guarding, Rigid, Tenderness , Rebound Additional comments: - ostomy pink and patent - Neurological Exam Neurological Exam: Alert, Awake Assessment and Plan - Assessment and Plan (Free Text) Assessment: 66F with loop colostomy, SKYLER, colonic decompression 2/2 large bowel obstruction Plan: - continue physical therapy - remove bridge before home DC Further recs discuss with Dr. Herminio Bourgeois, PGY2
[2017-01-18 06:54] LABS: ALKALINE PHOSPHATASE 799 U/L (38-126); ALT/SGPT 125 U/L (7-56); AST/SGOT 106 U/L (14-36); BILIRUBIN,TOTAL 1.1 mg/dL (0.2-1.3); BLOOD UREA NITROGEN 9 mg/dL (7-21); CALCIUM 9.5 mg/dL (8.4-10.5); CARBON DIOXIDE 32 mmol/L (21-33); CHLORIDE 101 mmol/L (95-110); GFR AFRICAN-AMERICAN > 60; GLUCOSE,RANDOM 96 mg/dL (70-110); POTASSIUM 3.4 mmol/L (3.6-5.0); SODIUM 140 mmol/L (132-148); TOTAL PROTEIN 7.1 g/dL (5.8-8.3)
[2017-01-18] MEDS: Potassium Chloride 20 mEq ER Tab PO SCH (08:34)
[2017-01-18] MEDS ORDERED: Potassium Chloride 20 mEq ER Tab PO ONE (11:35)
[2017-01-19] MEDS: HYDROmorphone 0.5 mg/0.5 ml ISec IVP PRN ×2 (05:22→15:34)
[2017-01-19 05:44] LABS: HEMATOCRIT 34.6 % (36.0-48.0); MEAN CELL VOLUME 95.1 fl (80.0-105.0); MEAN CORPUSCULAR HEMOGLOBIN 32.1 pg (25.0-35.0); MEAN CORPUSCULAR HGB CONC 33.8 g/dl (31.0-37.0); MEAN PLATELET VOLUME 9.6 fl (7.0-11.0); RED CELL DISTRIBUTION WIDTH 14.6 % (11.5-14.5); WHITE BLOOD COUNT 5.6 10^3/ul (4.5-11.0)
[2017-01-19 05:55] LABS: ALKALINE PHOSPHATASE 774 U/L (38-126); ALT/SGPT 114 U/L (7-56); AST/SGOT 121 U/L (14-36); BLOOD UREA NITROGEN 13 mg/dL (7-21); CALCIUM 9.4 mg/dL (8.4-10.5); CARBON DIOXIDE 29 mmol/L (21-33); CHLORIDE 103 mmol/L (95-110); GFR AFRICAN-AMERICAN > 60; GLUCOSE,RANDOM 87 mg/dL (70-110); SODIUM 140 mmol/L (132-148); TOTAL PROTEIN 6.7 g/dL (5.8-8.3)
--- NOTE | 2017-01-19 07:31 | CP.PCM.PN ---
Subjective - Date & Time of Evaluation Date of Evaluation: 01/19/17 Time of Evaluation: 07:28 - Subjective Subjective: General surgery progress note for Dr. Roberson. 66yo F seen and examined at bedside. She states she is doing well, no acute complaints, denies pain and nausea/vomiting. She is tolerating regular diet. She is working with physical therapy and doing well. She is changing her colostomy bag on her own and doing well with it. Objective - Vital Signs/Intake and Output Vital Signs (last 24 hours): Temp Pulse Resp BP Pulse Ox 98.0 F 70 18 112/74 97 01/19/17 06:00 01/19/17 06:00 01/19/17 06:00 01/19/17 06:00 01/19/17 06:00 - Medications Medications: Current Medications Acetaminophen (Tylenol 325mg Tab) 650 mg PO Q4H PRN; Protocol PRN Reason: Pain, Mild (1-3) Amlodipine Besylate (Norvasc) 10 mg PO DAILY [facility] PRN Reason: Protocol Last Admin: 01/18/17 10:47 Dose: 10 mg Calcium Carbonate (Caltrate) 600 mg PO DAILY PRN; Protocol PRN Reason: GI distress Heparin Sodium (Porcine) (Heparin) 5,000 units SC 0600,1800 [facility] PRN Reason: Protocol Last Admin: 01/19/17 05:21 Dose: 5,000 units Hydromorphone HCl (Dilaudid) 0.5 mg IVP Q3H PRN PRN Reason: Pain, moderate (4-7) Last Admin: 01/19/17 05:22 Dose: 0.5 mg Metoprolol Tartrate (Lopressor) 25 mg PO BRKDIN COUNTS [facility]CLUDE 234 [facility]S AT [facility] PRN Reason: Protocol Last Admin: 01/18/17 18:00 Dose: 25 mg Ondansetron HCl (Zofran Inj) 4 mg IVP Q4H PRN; Protocol PRN Reason: Nausea/Vomiting Potassium Chloride (K-Dur 20 Meq Er Tab) 20 meq PO 0800 [facility] Last Admin: 01/18/17 08:34 Dose: 20 meq - Labs Labs: 01/19/17 05:30 01/19/17 05:30 - Constitutional Appears: Non-toxic, No Acute Distress - Eye Exam Eye Exam: EOMI, Normal appearance - ENT Exam ENT Exam: Mucous Membranes Moist - Respiratory Exam Respiratory Exam: Clear to Ausculation Bilateral, NORMAL BREATHING PATTERN - Cardiovascular Exam Cardiovascular Exam: RRR, +S1, +S2 - GI/Abdominal Exam GI & Abdominal Exam: Soft, Normal Bowel Sounds. absent: Distended, Firm, Guarding, Rigid, Tenderness, Rebound Additional comments: loop colostomy pink and patent bridge present, no signs of erythema - Extremities Exam Extremities Exam: Full ROM, Normal Inspection. absent: Pedal Edema - Neurological Exam Neurological Exam: Alert, Awake - Psychiatric Exam Psychiatric exam: Normal Affect, Normal Mood - Skin Skin Exam: Dry, Normal Color, Warm Assessment and Plan - Assessment and Plan (Free Text) Assessment: 66yo female s/p loop colostomy, lysis of adhesions, and colonic decompression 2/ 2 large bowel obstruction PO day 7. Plan: continue physical therapy remove bridge before d/c continue with current medical management diet: heart healthy further recs discuss with Dr. Da Meng, DO PGY1
[2017-01-19] MEDS: Potassium Chloride 20 mEq ER Tab PO SCH (08:11)
--- NOTE | 2017-01-19 10:12 | PN ---
DATE: SUBJECTIVE: I saw Jyothi walking around the room. She is doing much better. She is taking care of her colostomy well. She is eating well, in good spirits. No pain. She is on Caltrate, Dilaudid, heparin, potassium, Lopressor, Norvasc, Tylenol, and Zofran. PHYSICAL EXAMINATION: VITAL SIGNS: 98 temperature, 70 pulse, blood pressure, 18 respiratory rate, 99% O2 sat on room air. HEENT: Head is atraumatic, normocephalic. HEART: Regular rate. LUNGS: Clear to auscultation. ABDOMEN: Soft. Positive colostomy. EXTREMITIES: No edema. LABORATORY DATA: She has a 5.6 white count, 11.7 hemoglobin, 34.6 hematocrit with 235 platelets. 140 sodium, potassium 4. BUN 30, creatinine 0.5, GFR is greater than 62, sugar is 87, calcium 9.4. Total bilirubin is 1. AST is 121, ALT is 114, and alkaline phosphatase is 77. Total protein is 6.7. PLAN: She is being seen by surgery and GI. When I get the okay from GI and surgery, she could be discharged. She is status post loop colostomy, diverting colostomy, colonic decompression secondary to large bowel obstruction. Continue aggressive treatment and care as per surgery. Thank you very much. We will check her labs tomorrow. Noah Smith DO [place]TD[place]
[2017-01-20] MEDS: HYDROmorphone 0.5 mg/0.5 ml ISec IVP PRN (00:16)
--- NOTE | 2017-01-20 07:49 | CP.PCM.PN ---
Subjective - Date & Time of Evaluation Date of Evaluation: 01/20/17 Time of Evaluation: 07:46 - Subjective Subjective: Progress note for Dr. Rico Bridging removed at bedside. RAFIA. Patient states no F/C, N/V. Patient states she's feeling fine, tolerating pain, tolerating diet. Patient is able to change colostomy on her own. Objective - Vital Signs/Intake and Output Vital Signs (last 24 hours): Temp Pulse Resp BP Pulse Ox 98.7 F 71 18 105/69 95 01/19/17 16:10 01/19/17 18:03 01/19/17 16:10 01/19/17 18:03 01/19/17 16:10 - Medications Medications: Current Medications Acetaminophen (Tylenol 325mg Tab) 650 mg PO Q4H PRN; Protocol PRN Reason: Pain, Mild (1-3) Amlodipine Besylate (Norvasc) 10 mg PO DAILY [facility] PRN Reason: Protocol Last Admin: 01/19/17 09:35 Dose: 10 mg Calcium Carbonate (Caltrate) 600 mg PO DAILY PRN; Protocol PRN Reason: GI distress Heparin Sodium (Porcine) (Heparin) 5,000 units SC 0600,1800 [facility] PRN Reason: Protocol Last Admin: 01/20/17 05:35 Dose: 5,000 units Hydromorphone HCl (Dilaudid) 0.5 mg IVP Q3H PRN PRN Reason: Pain, moderate (4-7) Last Admin: 01/20/17 00:16 Dose: 0.5 mg Metoprolol Tartrate (Lopressor) 25 mg PO BRKDIN [facility] PRN Reason: Protocol Last Admin: 01/19/17 18:03 Dose: 25 mg Ondansetron HCl (Zofran Inj) 4 mg IVP Q4H PRN; Protocol PRN Reason: Nausea/Vomiting Potassium Chloride (K-Dur 20 Meq Er Tab) 20 meq PO 0800 [facility] Last Admin: 01/19/17 08:11 Dose: 20 meq - Labs Labs: 01/19/17 05:30 01/19/17 05:30 - Constitutional Appears: Non-toxic - Head Exam Head Exam: NORMAL INSPECTION - Eye Exam Eye Exam: EOMI, Normal appearance - ENT Exam ENT Exam: Mucous Membranes Moist - Neck Exam Neck Exam: Full ROM, Normal Inspection - Respiratory Exam Respiratory Exam: Clear to Ausculation Bilateral, NORMAL BREATHING PATTERN. absent: Accessory Muscle Use, Respiratory Distress - Cardiovascular Exam Cardiovascular Exam: REGULAR RHYTHM - GI/Abdominal Exam GI & Abdominal Exam: Soft, Normal Bowel Sounds. absent: Tenderness Additional comments: loop colostomy patent, pink, with good output sydnie intact, incision site c/d/i, no erythema - Neurological Exam Neurological Exam: Alert, Awake, Normal Gait, Oriented x3 - Psychiatric Exam Psychiatric exam: Normal Affect, Normal Mood - Skin Skin Exam: Dry, Normal Color, Warm Assessment and Plan - Assessment and Plan (Free Text) Assessment: 66yo female s/p loop colostomy, lysis of adhesions, and colonic decompression 2/ 2 large bowel obstruction POD#8 Plan: c/w physical therapy bridge removed at bedside today. continue with current medical management Diet: heart healthy d/w Dr. Da Meng, DO PGY1
[2017-01-20] MEDS: Potassium Chloride 20 mEq ER Tab PO SCH (08:02)
[2017-01-20 08:03] LABS: HEMATOCRIT 36.4 % (36.0-48.0); MEAN CORPUSCULAR HEMOGLOBIN 32.6 pg (25.0-35.0); MEAN CORPUSCULAR HGB CONC 34.3 g/dl (31.0-37.0); MEAN PLATELET VOLUME 9.4 fl (7.0-11.0); RED CELL DISTRIBUTION WIDTH 14.6 % (11.5-14.5); WHITE BLOOD COUNT 5.5 10^3/ul (4.5-11.0)
[2017-01-20 08:15] LABS: ALB/GLOB RATIO 1.1 (1.1-1.8); ALKALINE PHOSPHATASE 1059 U/L (38-126); ALT/SGPT 150 U/L (7-56); AST/SGOT 155 U/L (14-36); BILIRUBIN,TOTAL 0.9 mg/dL (0.2-1.3); BLOOD UREA NITROGEN 13 mg/dL (7-21); CALCIUM 9.6 mg/dL (8.4-10.5); CARBON DIOXIDE 27 mmol/L (21-33); CHLORIDE 106 mmol/L (98-107); GFR AFRICAN-AMERICAN > 60; GLUCOSE,RANDOM 102 mg/dL (70-110); POTASSIUM 4.6 mmol/L (3.6-5.0); SODIUM 141 mmol/L (132-148); TOTAL PROTEIN 7.3 g/dL (5.8-8.3)
[2017-01-20 11:17] VITALS: BP 118/75; PULSE 74; RESP 14; TEMP 97.5; O2SAT 96
--- NOTE | 2017-01-20 13:51 | DS ---
HISTORY OF PRESENT ILLNESS: The patient has been through a lot while she has been here in [facility], now she is on the TCU. She did have a large bowel obstruction for which she went through a diverting colostomy for colon cancer at the anastomosis with metastasis, but she is doing much better here on TCU. She is eating well. The colostomy is working. She is walking around her room, and she is really not in any pain. She is quite comfortable and happy. PHYSICAL EXAMINATION: VITAL SIGNS: She has a 98.7 temperature, 71 pulse, 105/69 blood pressure, 18 respiratory rate, 95% saturation on room air. HEENT: Head is atraumatic and normocephalic. Throat is moist. NECK: Supple. HEART: Regular rate. LUNGS: Decreased breath sounds, but clear to auscultation. ABDOMEN: Soft, positive bowel sounds. Positive colostomy. EXTREMITIES: No edema. MEDICATIONS: She is going to go home on Caltrate, potassium, Lopressor, Norvasc, and Zofran. LABORATORY DATA: She had a 5.5 white count, 12.5 hemoglobin, 36.4 hematocrit with 267 platelets. Sodium 141, potassium is 4.6, BUN is 13, creatinine 0.6, GFR is greater than 60, sugar is 102, calcium is 9.6, total bilirubin is 0.9. AST is 155, ALT is 150, alkaline phosphatase is 1059. She is being seen by surgery. They said she could be discharged today. She will discharged to follow with me on the outpatient. I am going to stop the potassium pills as the potassium did so well, and she was here for a large bowel obstruction, status post colostomy with diverting colostomy. Noah Smith DO
== END 2017-01-20 13:46 | disposition home or self-care (01) | DRG 375 ==
LOC: TRCU 18:52
PROVIDERS: ADMIT Family Medicine; ATTEND Family Medicine
PROC: F07Z9ZZ Gait Training/Functional Ambulation Treatment (ICD-10-PCS; principal; 2017-01-15)
PROC: F08Z4ZZ Home Management Treatment (ICD-10-PCS; 2017-01-15)
DX: C18.9 Malignant neoplasm of colon, unspecified (principal); K56.69 Other intestinal obstruction; C78.7 Secondary malignant neoplasm of liver and intrahepatic bile duct; Z48.3 Aftercare following surgery for neoplasm; Z93.3 Colostomy status; Z87.891 Personal history of nicotine dependence

== ENCOUNTER 2017-04-18 13:19 | Emergency (ER) | payer MEDICARE ==
[2017-04-18 13:20] VITALS: BMI 27.6
[2017-04-18 14:18] VITALS: TEMP 98.7
[2017-04-18] MEDS ORDERED: Sodium Chloride 0.9% 500 ML IV STA (14:23)
--- NOTE | 2017-04-18 15:06 | ED PDOC ---
Arrival/HPI - History of Present Illness Time/Duration: Other (23:00 Last night ) Symptom Onset: Sudden Symptom Course: Resolved Activities at Onset: Rest <Cortez Vasquez - Last Filed: 04/18/17 17:13> <Kd Thompson - Last Filed: 04/20/17 11:32> - General Chief Complaint: Abnormal Skin Integrity Time Seen by Provider: 04/18/17 13:34 - History of Present Illness Narrative History of Present Illness (Text): 66 year old female with PMHx of Colon CA with Mets to the liver and HTN presents complaining of bleeding at stoma site. Patient states she noticed the bleeding last night while changing her colostomy bag. She denies any trauma to the region. She is unsure if she had anything red to eat. She has associated lower abdominal soreness which has been chronic since the surgery. Bleeding resolved by the morning. ROS POSITIVE: Abdominal Tenderness, NEGATIVE: Fevers, Chills, chest pain, SOB, acute urinary symptoms, nausea, vomiting, diarrhea, constipation PMHx: Colon CA w/ METS to liver, HTN PSHx: Loop Colostomy (01/12/17) Alllergies: NKDA Social: Denies Tobacco, Alcohol or illicit drug use Hos: FamHx: Denies Meds: Chemotherapy regiment + Norvasc 10 04/18/17 14:53 (Cortez Vasquez) Past Medical History - Provider Review Nursing Documentation Reviewed: Yes - Infectious Disease Hx of Infectious Diseases: None - Reproductive Menopause: Yes - Cardiac Hx Hypertension: Yes - Neurological Hx Paralysis: No - Hematological/Oncological Hx Blood Transfusions: No Hx Blood Transfusion Reaction: No - Musculoskeletal/Rheumatological Hx Falls: No - Gastrointestinal Hx Gastrointestinal Disorders: (01/12/17 lap colostomy yvon) - Genitourinary/Gynecological Other/Comment: colon cancer on chemo - Psychiatric Hx Emotional Abuse: No Hx Physical Abuse: No Hx Substance Use: No - Surgical History Other/Comment: 12/2016- abd sx- for bowel obstruction - Anesthesia Hx Anesthesia: Yes Hx Anesthesia Reactions: No Hx Malignant Hyperthermia: No - Suicidal Assessment Feels Threatened In Home Enviroment: No <Cortez Vasquez - Last Filed: 04/18/17 17:13> Family/Social History - Physician Review Nursing Documentation Reviewed: Yes Family/Social History: No Known Family HX Smoking Status: Former Smoker Hx Alcohol Use: No (SOCIAL USE ONLY-WINE) Hx Substance Use: No <Heather Vasquezmegan - Last Filed: 04/18/17 17:13> Allergies/Home Meds <Heather Vasquezmegan - Last Filed: 04/18/17 17:13> <Kd Thompson - Last Filed: 04/20/17 11:32> Allergies/Adverse Reactions: Allergies No Known Allergies Allergy (Verified 04/18/17 14:18) Home Medications: Home Meds Medication Instructions Recorded Confirmed Capecitabine 1,000 mg PO BID 01/09/17 04/18/17 Review of Systems - Physician Review All systems were reviewed & negative as marked: Yes - Review of Systems Respiratory: Normal. absent: SOB Cardiovascular: Normal. absent: Chest Pain <Heather Vasquezmegan - Last Filed: 04/18/17 17:13> Physical Exam Vital Signs Reviewed: Yes Temperature: Afebrile Blood Pressure: Normal Pulse: Tachycardic Respiratory Rate: Normal Appearance: Positive for: Well-Appearing, Non-Toxic, Comfortable Pain Distress: Mild Mental Status: Positive for: Alert and Oriented X 3 - Systems Exam Head: Present: Atraumatic, Normocephalic Conjunctiva: Present: Normal Mouth: Present: Moist Mucous Membranes Respiratory/Chest: Present: Clear to Auscultation. No: Respiratory Distress, Rhonchi Cardiovascular: Present: Regular Rate and Rhythm, Normal S1, S2. No: Murmurs Abdomen: Present: Tenderness, Normal Bowel Sounds, Other (Colostomy Site). No: Mass/Organomegaly Rectal: No: Occult Blood Upper Extremity: Present: Normal Inspection Lower Extremity: Present: Normal Inspection Neurological: Present: GCS=15, Speech Normal Skin: Present: Warm, Dry, Normal Color Psychiatric: Present: Alert, Oriented x 3, Normal Insight, Normal Affect, Normal Mood <Cortez Vasquez - Last Filed: 04/18/17 17:13> Vital Signs Temp Pulse Resp BP Pulse Ox 04/18/17 17:23 89 16 128/87 100 04/18/17 14:07 98.7 F 102 H 19 130/87 98 Medical Decision Making Reassessment Condition: Unchanged (Patient's complaints resolved before coming to the ED) - Lab Interpretations I have reviewed the lab results: Yes - RAD Interpretation Telemarketing Representative: ED Physician - EKG Interpretation Interpreted by ED Physician: Yes <Cortez Vasquez - Last Filed: 04/18/17 17:13> <Kd Thompson - Last Filed: 04/20/17 11:32> ED Course and Treatment: 66 Year old Female with PMHx of HTN and Colon CA with Mets to the liver presents with colostomy site bleeding --Stool Occult: NEGATIVE --Amylase/Lipase --Cardiac ISO --CMP/CBC --PT/PTT --Type and Screen --NS --EKG --UA -Reassess and Disposition Reassessment: --EKG: NSR with no ST/T wave changes --Chest X-ray: Shows no active pulmonary disease. --Urinalysis is unremarkable. --CBC: shows elevated RDW at 17.6 --CMP Elevated AST, ALT, And Alk Phos at 155,150, and 1059 respectively. Likely 2/2 to liver and bone METS. BUN is normal --Troponin NEGATIVE --Amylase: 48 --Lipase:38 Dispo: Patient is stable for discharge. Bleeding has resolved. Advised patient to follow up with PMD and surgeon who did the loop colostomy. (Cortez Vasquez) Patient Seen With Resident: In agreement with resident note. Patient was seen and evaluated with resident, came up with plan and treatment together. A 66 year old female with colostomy site bleeding. Additional HPI as noted by resident. On physical exam, patient has abdominal tenderness and colostomy bag. Ordered EKG, chest xray, urinalysis and labs. Will give patient IV fluids. (Kd Thompson) - Lab Interpretations Lab Results: 04/18/17 15:25 04/18/17 15:25 Lab Results 04/18/17 15:55: Urine Color Yellow, Urine Appearance Sl cloudy, Urine pH 6.0, Ur Specific [place] <= 1.005, Urine Protein Negative, Urine Glucose (UA) Negative, Urine Ketones Negative, Urine Blood Negative, Urine Nitrate Negative, Urine Bilirubin Negative, Urine Urobilinogen 0.2, Ur Leukocyte Esterase Negative 04/18/17 15:25: Blood Type B POSITIVE, Antibody Screen Negative, BBK History Checked Patient has bt 04/18/17 15:25: Sodium 139, Potassium 4.1, Chloride 103, Carbon Dioxide 30, Anion Gap 10, BUN 14, Creatinine 0.5 L, Est GFR ( Amer) > 60, Est GFR ( Non-Af Amer) > 60, Random Glucose 103, Calcium 10.0, Total Bilirubin 4.1 H, AST 195 H D, ALT 123 H, Alkaline Phosphatase 1713 H, Lactate Dehydrogenase 4032 H, Total Creatine Kinase 102, Troponin I < 0.01, Total Protein 8.1, Albumin 3.9, Globulin 4.3, Albumin/Globulin Ratio 0.9 L, Amylase 48, Lipase 30 04/18/17 15:25: PT 12.2, INR 1.12 H, APTT 31.6 04/18/17 15:25: WBC 6.0, RBC 3.95, Hgb 13.0, Hct 37.7, MCV 95.4, MCH 32.9, MCHC 34.5, RDW 17.6 H, Plt Count 214, MPV 10.1, Gran % 61.9, Lymph % (Auto) 24.0, Graves % (Auto) 11.8 H, Eos % (Auto) 1.8, Baso % (Auto) 0.5, Gran # 3.74, Lymph # 1.5, Graves # 0.7 H, Eos # 0.1, Baso # 0.03 - RAD Interpretation Radiology Orders: 04/18/17 14:23 CHEST PORTABLE [RAD] Stat - Medication Orders Current Medication Orders: Discontinued Medications Sodium Chloride (Sodium Chloride 0.9%) 500 mls @ 1,000 mls/hr IV .Q30M STA Stop: 04/18/17 14:52 Last Admin: 04/18/17 15:29 Dose: 1,000 mls/hr eMAR Start Stop Document 04/18/17 15:29 HI (Rec: 04/18/17 15:29 MT [id number]) Intravenous Solution Start Date 04/18/17 Start Time 15:29 - PA / TEXTILE CONSERVATOR / Resident Statement / has reviewed & agrees with the documentation as recorded. <Kd Thompson - Last Filed: 04/20/17 11:32> Disposition/Present on Arrival - Present on Arrival Any Indicators Present on Arrival: No History of DVT/PE: No History of Uncontrolled Diabetes: No Urinary Catheter: No History of Decub. Ulcer: No History Surgical Site Infection Following: None - Disposition Have Diagnosis and Disposition been Completed?: Yes Disposition Time: 17:10 Patient Plan: Discharge <Cortez Vasquez - Last Filed: 04/18/17 17:13> <Kd Thompson - Last Filed: 04/20/17 11:32> - Disposition Diagnosis: Colostomy care, Colostomy dysfunction Disposition: HOME/ ROUTINE Condition: STABLE Discharge Instructions (ExitCare): Colostomy Care (ED) Referrals: Luiz Villarreal MD [Primary Care Provider] - Follow up with primary Olegario Rico MD [Staff Provider] - Follow up with primary Forms: [employer] ([place])
--- NOTE | 2017-04-18 15:29 | RAD ---
HISTORY: r/o subdiaphragmatic free air COMPARISON: None available. TECHNIQUE: Chest x-ray performed 04/02/17 FINDINGS: Semi-erect portable view of the chest. Right-sided MediPort extends to the SVC. LUNGS: No focal consolidation. Please note that chest x-ray has limited sensitivity for the detection of pulmonary masses. PLEURA: No significant pleural effusion identified. No definite pneumothorax . CARDIOVASCULAR: The cardiomediastinal silhouette appears within normal limits of size. OSSEOUS STRUCTURES: No acute osseous abnormality identified. VISUALIZED UPPER ABDOMEN: Unremarkable. OTHER FINDINGS: None. IMPRESSION: Right-sided MediPort extends the SVC.
[2017-04-18 15:35] LABS: BASO # 0.03 K/mm3 (0.0-2.0); BASO % 0.5 % (0.0-3.0); EOS # 0.1 (0.0-0.7); EOS % 1.8 % (1.5-5.0); GRAN # 3.74 (1.4-6.5); GRAN % 61.9 % (50.0-68.0); HEMATOCRIT 37.7 % (36.0-48.0); LYMPH # 1.5 (1.2-3.4); MEAN CELL VOLUME 95.4 fl (80.0-105.0); MEAN CORPUSCULAR HEMOGLOBIN 32.9 pg (25.0-35.0); MEAN CORPUSCULAR HGB CONC 34.5 g/dl (31.0-37.0); MEAN PLATELET VOLUME 10.1 fl (7.0-11.0); MONO # 0.7 (0.1-0.6); MONO % 11.8 % (1.0-6.0); RED CELL DISTRIBUTION WIDTH 17.6 % (11.5-14.5)
[2017-04-18 16:04] LABS: INR 1.12 (0.93-1.08); PARTIAL THROMBOPLASTIN TIME 31.6 Seconds (25.1-36.5)
[2017-04-18 16:12] LABS: URINE BILIRUBIN NEGATIVE (NEGATIVE); URINE BLOOD NEGATIVE (NEGATIVE); URINE GLUCOSE (UA) NEGATIVE (NEGATIVE); URINE KETONE NEGATIVE (NEGATIVE); URINE LEUKOCYTE ESTERASE NEGATIVE Leu/uL (NEGATIVE); URINE PROTEIN NEGATIVE mg/dL (<30 mg/dL); URINE UROBILINOGEN 0.2 E.U./dL (<1 E.U./dL)
[2017-04-18 16:13] LABS: TROPONIN I < 0.01 ng/mL
[2017-04-18 16:13] LABS: URINE APPEARANCE SL CLOUDY (CLEAR); URINE COLOR YELLOW (YELLOW)
[2017-04-18 16:21] LABS: BLOOD UREA NITROGEN 14 mg/dL (7-21); CARBON DIOXIDE 30 mmol/L (21-33); CHLORIDE 103 mmol/L (98-107); GFR AFRICAN-AMERICAN > 60; GLUCOSE,RANDOM 103 mg/dL (70-110); POTASSIUM 4.1 mmol/L (3.6-5.0); SODIUM 139 mmol/L (132-148); TOTAL PROTEIN 8.1 g/dL (5.8-8.3)
[2017-04-18 16:22] LABS: ALB/GLOB RATIO 0.9 (1.1-1.8); ALKALINE PHOSPHATASE 1713 U/L (38-126); ALT/SGPT 123 U/L (7-56); AMYLASE 48 U/L (35-125); AST/SGOT 195 U/L (14-36); BILIRUBIN,TOTAL 4.1 mg/dL (0.2-1.3); LIPASE 30 U/L (23-300)
[2017-04-18 17:39] VITALS: BP 128/87; PULSE 89; RESP 16; O2SAT 100
--- NOTE | 2017-04-19 17:45 | CARD ---
APPROVED REPORT EKG Measurement Heart [id number] <Conclusion> Normal sinus rhythm Normal ECG
== END 2017-04-18 17:23 | disposition home or self-care (01) ==
LOC: ED 13:19
DX: K94.03 Colostomy malfunction (principal); Y84.8 Other medical procedures as the cause of abnormal reaction of the patient, or of later complication, without mention of misadventure at the time of the procedure; I10 Essential (primary) hypertension; Z85.038 Personal history of other malignant neoplasm of large intestine; Z87.891 Personal history of nicotine dependence
CPT/HCPCS: 71010; 80053; 81003; 82150; 82550; 83615; 83690; 84484; 85025; 85610; 85730; 86850; 86900; 93005; 99283; J7040